=== PATIENT | female | born 1975 | race Caucasian/White ===

== ENCOUNTER → 2017-07-12 15:03 | Outpatient (REF) | payer BC, SELFPAY ==
[2017-07-12 18:56] LABS: Amphetamine/Metha Screen,Urine Negative ng/mL (<1000); Barbiturates Screen,Urine Negative ng/mL (<200); Benzodiazepines Screen,Urine Positive ng/mL (200); Cannabinoid Screen,Urine Negative ng/mL (<50); Cocaine Screen,Urine Negative ng/g (<300); Methadone Screen,Urine Negative ng/mL (<300); Opiate Screen,Urine Negative ng/mL (<300); Phencyclidine Screen,Urine Negative ng/mL (<25)
== END ==
LOC: LAB 15:03
PROVIDERS: Visit Provider Nurse Practitioner Family
DX: Z79.899 Other long term (current) drug therapy (principal)
CPT/HCPCS: 80305

== ENCOUNTER → 2017-10-09 14:27 | Outpatient (REF) | payer BC, SELFPAY ==
[2017-10-09 16:45] LABS: Amphetamine/Metha Screen,Urine Negative ng/mL (<1000); Barbiturates Screen,Urine Negative ng/mL (<200); Benzodiazepines Screen,Urine Negative ng/mL (200); Cannabinoid Screen,Urine Negative ng/mL (<50); Cocaine Screen,Urine Negative ng/g (<300); Methadone Screen,Urine Negative ng/mL (<300); Opiate Screen,Urine Negative ng/mL (<300); Phencyclidine Screen,Urine Negative ng/mL (<25)
== END ==
LOC: LAB 14:27
PROVIDERS: Visit Provider Emergency Medicine
DX: Z79.899 Other long term (current) drug therapy (principal)
CPT/HCPCS: 80305

== ENCOUNTER → 2018-01-08 11:03 | Outpatient (REF) | payer BC, SELFPAY ==
[2018-01-08 14:11] LABS: Amphetamine/Metha Screen,Urine Negative ng/mL (<1000); Barbiturates Screen,Urine Negative ng/mL (<200); Benzodiazepines Screen,Urine Positive ng/mL (<200); Cannabinoid Screen,Urine Positive ng/mL (<50); Cocaine Screen,Urine Negative ng/mL (<300); Methadone Screen,Urine Negative ng/mL (<300); Opiate Screen,Urine Negative ng/mL (<300); Phencyclidine Screen,Urine Negative ng/mL (<25)
== END ==
LOC: LAB 11:03
PROVIDERS: Visit Provider Emergency Medicine
DX: Z79.899 Other long term (current) drug therapy (principal)
CPT/HCPCS: 80305

== ENCOUNTER → 2018-04-11 14:18 | Outpatient (CLI) | payer SELFPAY ==
[2018-04-11 17:12] LABS: Amphetamine/Metha Screen,Urine Negative ng/mL (<1000); Barbiturates Screen,Urine Negative ng/mL (<200); Benzodiazepines Screen,Urine Positive ng/mL (<200); Cannabinoid Screen,Urine Positive ng/mL (<50); Cocaine Screen,Urine Negative ng/mL (<300); Methadone Screen,Urine Negative ng/mL (<300); Opiate Screen,Urine Negative ng/mL (<300); Phencyclidine Screen,Urine Negative ng/mL (<25)
== END ==
PROVIDERS: Visit Provider Emergency Medicine
DX: Z79.899 Other long term (current) drug therapy (principal)
CPT/HCPCS: 80305

== ENCOUNTER → 2018-07-10 13:26 | Outpatient (CLI) | payer SELFPAY ==
[2018-07-10 13:59] LABS: Basophils # 0.1 K/mm3 (0-0.2); Basophils % 1.4 % (0.1-2.0); Eosinophils # 0.1 K/mm3 (0.0-0.4); Eosinophils % 1.2 % (0.1-12.0); Hematocrit 39.8 % (37.0-47.0); Hemoglobin 13.5 g/dL (12.2-16.2); Lymphocytes % 47.1 % (10-50); Mean Corpuscular HGB Conc 33.8 g/dL (31.8-35.4); Mean Corpuscular Hemoglobin 28.4 pg (27.0-31.2); Mean Corpuscular Volume 83.9 fl (81-99); Mean Platelet Volume 8.9 fl (7.4-10.4); Monocytes # 0.2 K/mm3 (0.1-1.0); Monocytes % 5.3 % (1.7-9.3); Neutrophils # 1.9 K/mm3 (1.8-7.8); Platelet Count 245 K/mm3 (142-424); Red Blood Count 4.75 M/mm3 (4.20-5.40); Red Cell Distribution Width 14.6 % (11.5-17.5); White Blood Count 4.2 K/mm3 (4.8-10.8)
[2018-07-10 14:43] LABS: Alanine Aminotransferase 46 U/L (12-78); Albumin Level 4.4 gm/dL (3.4-5.0); Albumin/Globulin Ratio 1.4 (1.1-1.8); Alkaline Phosphatase 156 U/L (46-116); Anion Gap 16.8 mEq/L (5-15); Aspartate Amino Transferase 22 U/L (15-37); Bilirubin,Total 0.3 mg/dL (0.2-1.0); Blood Urea Nitrogen 15 mg/dL (7-18); Calcium 9.2 mg/dL (8.5-10.1); Carbon Dioxide 25 mmol/L (21.0-32.0); Chloride 102 mmol/L (98-107); Cholesterol 171 mg/dL (140-200); Creatinine,Serum 0.67 mg/dL (0.55-1.02); Estimated Glomerular Filt Rate 96 ml/min (>60); Free T4 (Free Thyroxine) 1.21 ng/dl (0.76-1.46); GFR (African American) 116 ML/MIN (>60); Globulin 3.2 gm/dl (1.3-3.2); Glucose 91 mg/dL (74-106); HDL Cholesterol 86 mg/dL (29-89); LDL Cholesterol 79 mg/dL (0-130); Potassium 3.8 mmoL/L (3.5-5.1); Sodium 140 mmol/L (136-145); Thyroid Stimulating Hormone 1.17 uIU/ml (0.358-3.740); Total Protein,Serum 7.6 gm/dL (6.4-8.2); Triglycerides 28 mg/dL (30-200); VLDL Cholesterol 6 mg/dL (0-40)
[2018-07-10 15:54] LABS: Amphetamine/Metha Screen,Urine Negative ng/mL (<1000); Barbiturates Screen,Urine Negative ng/mL (<200); Benzodiazepines Screen,Urine Positive ng/mL (<200); Cannabinoid Screen,Urine Positive ng/mL (<50); Cocaine Screen,Urine Negative ng/mL (<300); Methadone Screen,Urine Negative ng/mL (<300); Opiate Screen,Urine Negative ng/mL (<300); Phencyclidine Screen,Urine Negative ng/mL (<25)
[2018-07-11 09:33] LABS: Vitamin D 25 Hydroxy 12.1 ng/mL (30.0-100.0)
== END ==
PROVIDERS: Visit Provider Emergency Medicine
DX: R53.83 Other fatigue (principal); Z79.899 Other long term (current) drug therapy
CPT/HCPCS: 80053; 80061; 80305; 82652; 84439; 84443; 85025

== ENCOUNTER → 2018-10-04 13:58 | Outpatient (CLI) | payer SELFPAY ==
[2018-10-04 15:03] LABS: Amphetamine/Metha Screen,Urine Negative ng/mL (<1000); Barbiturates Screen,Urine Negative ng/mL (<200); Benzodiazepines Screen,Urine Positive ng/mL (<200); Cannabinoid Screen,Urine Positive ng/mL (<50); Cocaine Screen,Urine Negative ng/mL (<300); Methadone Screen,Urine Negative ng/mL (<300); Opiate Screen,Urine Negative ng/mL (<300); Phencyclidine Screen,Urine Negative ng/mL (<25)
== END ==
PROVIDERS: Visit Provider Emergency Medicine
DX: F41.9 Anxiety disorder, unspecified (principal)
CPT/HCPCS: 80305

== ENCOUNTER → 2019-01-03 13:56 | Outpatient (CLI) | payer SELFPAY ==
[2019-01-03 16:37] LABS: Amphetamine/Metha Screen,Urine Negative ng/mL (<1000); Barbiturates Screen,Urine Negative ng/mL (<200); Benzodiazepines Screen,Urine Positive ng/mL (<200); Cannabinoid Screen,Urine Positive ng/mL (<50); Cocaine Screen,Urine Negative ng/mL (<300); Methadone Screen,Urine Negative ng/mL (<300); Opiate Screen,Urine Negative ng/mL (<300); Phencyclidine Screen,Urine Negative ng/mL (<25)
== END ==
PROVIDERS: Visit Provider Emergency Medicine
DX: Z79.899 Other long term (current) drug therapy (principal)
CPT/HCPCS: 80305

== ENCOUNTER → 2019-04-04 13:29 | Outpatient (CLI) | payer SELFPAY ==
[2019-04-04 15:23] LABS: Amphetamine/Metha Screen,Urine Negative ng/mL (<1000); Barbiturates Screen,Urine Negative ng/mL (<200); Benzodiazepines Screen,Urine Positive ng/mL (<200); Cannabinoid Screen,Urine Positive ng/mL (<50); Cocaine Screen,Urine Negative ng/mL (<300); Methadone Screen,Urine Negative ng/mL (<300); Opiate Screen,Urine Negative ng/mL (<300); Phencyclidine Screen,Urine Negative ng/mL (<25)
== END ==
PROVIDERS: Visit Provider Emergency Medicine
DX: F41.9 Anxiety disorder, unspecified (principal)
CPT/HCPCS: 80305

== ENCOUNTER → 2019-07-04 14:07 | Outpatient (CLI) | payer SELFPAY ==
[2019-07-04 16:48] LABS: Amphetamine/Metha Screen,Urine Negative ng/mL (<1000); Barbiturates Screen,Urine Negative ng/mL (<200); Benzodiazepines Screen,Urine Positive ng/mL (<200); Cannabinoid Screen,Urine Positive ng/mL (<50); Cocaine Screen,Urine Negative ng/mL (<300); Methadone Screen,Urine Negative ng/mL (<300); Opiate Screen,Urine Negative ng/mL (<300); Phencyclidine Screen,Urine Negative ng/mL (<25)
== END ==
PROVIDERS: Visit Provider Emergency Medicine
DX: Z79.899 Other long term (current) drug therapy (principal)
CPT/HCPCS: 80305

== ENCOUNTER 2020-01-05 14:13 | Emergency (ER) | payer MEDICAID, SELFPAY ==
[2020-01-05 15:07] VITALS: BMI 20.9
--- NOTE | 2020-01-05 15:09 | XR_ITS ---
PROCEDURE: XR KUB CLINICAL INDICATION: stomach cramps COMPARISON: No exams were available for comparison FINDINGS: Moderate amount of retained colonic feces. Pelvic calcifications are present and may be due to phleboliths. Prior cholecystectomy. IMPRESSION: Constipation Dictated by: Nikhil Enrique MD 01/05/2020 16:30 Electronically signed by Nikhil Enrique MD in [place] 01/05/2020 16:30
[2020-01-05 15:19] VITALS: BP 108/68; PULSE 70; RESP 20; TEMP 36.6; O2SAT 99; BMI 20.9
--- NOTE | 2020-01-05 15:51 | HMH.EDUTC ---
[facility] [place] Disposition Clinical Impression: Abdominal pain Qualifiers: Abdominal location: generalized Qualified Code(s): R10.84 - Generalized abdominal pain Constipation Qualifiers: Constipation type: unspecified constipation type Qualified Code(s): K59.00 - Constipation, unspecified Disposition: Home, Self-Care Condition on Discharge: Good Instructions: Constipation, DI for Constipation Additional Instructions: Drink plenty of fluids. Take tylenol or ibuprofen for pain or fever. Take the medications as directed. Follow up with your regular doctor. GO TO THE ER FOR ANY WORSENING SYMPTOMS Eat a diet high in fiber. Prescriptions: polyethylene glycoL 3350 [Miralax Powder] 17 gm PO DAILYP PRN #1 jar PRN Reason: Constipation Transmission Status: Received by [facility] Referrals: Osmin Mathur MD [Primary Care Provider] - Forms: Work/School Release Time of Disposition: 16:13 Medical Decision Making - Medical Records Medical records reviewed: No: I reviewed the patient's medical records. - Zen Inquiry Pt receiving controlled substance: No Vital Signs: 01/05/20 15:19 01/05/20 16:19 Temperature 97.9 F 97.9 F Temperature Source Oral Pulse Rate 70 Pulse Rate [Right Brachial] 70 Respiratory Rate 20 20 Blood Pressure 108/68 L Blood Pressure [Right Arm] 108/68 L Blood Pressure Mean [Right Arm] 81 Blood Pressure Source [Right Arm] Automatic Cuff Blood Pressure Position [Right Arm] Sitting 02 Sat by Pulse Oximetry 99 Oxygen Delivery Method Room Air - Radiology Data #1 Image(s): Abdomen Image Reviewed: Yes I reviewed the patient's radiology image, Yes I have reviewed radiologist's interpretation PROCEDURE: XR KUB CLINICAL INDICATION: stomach cramps COMPARISON: No exams were available for comparison FINDINGS: Moderate amount of retained colonic feces. Pelvic calcifications are present and may be due to phleboliths. Prior cholecystectomy. IMPRESSION: Constipation Dictated by: Nikhil Enrique MD 01/05/2020 16:30 Electronically signed by Nikhil Enrique MD in [place] 01/05/2020 16:30 [facility] [place] HPI - General Stated complaint: CONSPATED Time Seen by Provider: 01/05/20 15:51 Mode of Arrival: Ambulatory Source of Information: Patient Limitations: No Limitations Description of Symptoms (Recalled from Triage Doc. by RN): PATIENT C/O STOMACH CRAMPS, WEIGHT LOSS, BLOATING, FATIGUE, HEADACHE, AND NO BOWEL MOVEMENT X 3 DAYS HEENT Symptoms (Recalled from RN notes): No Resp Symptoms (Recalled from RN notes): No Skin Symptoms (Recalled from RN notes): No MS Symptoms (Recalled from RN notes): No Functional Status (Recalled from RN notes): WNL - History of Present Illness Provider Complaint: She c/o 3 days of consitpation. She has also been having fatigue and weight loss, but she has an appointment with her pcp (Dr. Mathur) to further evaluate this. - Related Data Previous Rx's Medication Instructions Recorded Albuterol Sulfate [Albuterol HFA 1 - 2 puffs IH Q4-6H PRN #1 inh 04/17/18 Inhaler] cholecalciferol (vitamin D3) 25 1,000 unit PO DAILY 90 Days #90 cap 07/12/18 mcg (1,000 unit) capsule alprazolam 1 mg tablet 1 mg PO QID #120 tab 07/04/19 trazodone 50 mg tablet 25 mg PO QHS #45 tab 07/04/19 alprazolam 1 mg tablet 1 mg PO TID #90 tab 12/12/19 polyethylene glycoL 3350 [Miralax 17 gm PO DAILYP PRN #1 jar 01/05/20 Powder] Allergies Allergy/AdvReac Type Severity Reaction Status Date / Time No Known Allergies Allergy Verified 07/04/19 09:41 - Worker's Comp Is this a Worker's Comp case?: No [facility] History - Hepatitis A Screen Drug use history?: No High risk sexual behaviors?: No History of sexually transmitted infection?: No Currently employed?: No Childcare worker?: No Do you have indoor plumbing?: Yes Do you have electricity?: Yes Attestation statement:: This patient has been screened for Hepatitis A risk factors.
[2020-01-05 16:19] VITALS: BP 108/68; PULSE 70; RESP 20; TEMP 36.6; O2SAT 99
== END 2020-01-05 16:26 | disposition home or self-care (01) ==
PROVIDERS: Emergency Provider Nurse Practitioner Family; PCP Emergency Medicine
DX: R10.84 Generalized abdominal pain (principal); K59.00 Constipation, unspecified; F41.8 Other specified anxiety disorders; F17.210 Nicotine dependence, cigarettes, uncomplicated
CPT/HCPCS: 74018; 99201

== ENCOUNTER → 2020-06-22 11:27 | Outpatient (CLI) | payer OTHER, SELFPAY ==
[2020-06-23 08:33] LABS: Covid-19 Nasal PCR Sendout P&C NEGATIVE
== END ==
PROVIDERS: PCP Emergency Medicine; Visit Provider Emergency Medicine
DX: Z20.822 Contact with and (suspected) exposure to COVID-19 (principal)
CPT/HCPCS: U0004

== ENCOUNTER → 2020-06-23 13:43 | Outpatient (CLI) | payer OTHER, SELFPAY ==
[2020-06-23 13:56] LABS: Alanine Aminotransferase 78 U/L (12-78); Albumin/Globulin Ratio 1.6 (1.1-1.8); Alkaline Phosphatase 190 U/L (38-126); Anion Gap 12.9 mEq/L (5-15); Aspartate Amino Transferase 77 U/L (14-36); Bilirubin,Total 0.6 mg/dl (0.2-1.3); Blood Urea Nitrogen 8 mg/dl (7-17); Calcium 9.7 mg/dl (8.4-10.2); Carbon Dioxide 28 mmol/L (22.0-30.0); Chloride 103 mmol/L (98-107); Chol/HDL Ratio 2.3 (1-3.5); Cholesterol 219 mg/dl (140-200); Estimated Glomerular Filt Rate 108 ml/min (>60); GFR (African American) 131 ML/MIN (>60); Globulin 3.2 g/dL (1.3-3.2); Glucose 115 mg/dl (74-100); HDL Cholesterol 97 mg/dl (40-60); Potassium 3.9 mmoL/L (3.5-5.1); Sodium 140 mmol/L (136-145); Total Protein,Serum 8.2 g/dl (6.3-8.2); Triglycerides 68 mg/dl (30-150); VLDL Cholesterol 14 mg/dL (0-40)
[2020-06-23 14:06] LABS: Direct LDL Cholesterol 75.66 mg/dL (100-129)
[2020-06-23 14:12] LABS: Free T4 (Free Thyroxine) 1.34 ng/dl (0.78-2.19)
[2020-06-23 14:16] LABS: 25-OH Vitamin D, Total < 12.8 ng/mL (30-100)
[2020-06-23 14:23] LABS: Basophils # 0.1 K/mm3 (0-0.2); Basophils % 1.4 % (0.1-2.0); Eosinophils # 0.1 K/mm3 (0.0-0.4); Eosinophils % 2.7 % (0.1-12.0); Hematocrit 41.1 % (37.0-47.0); Hemoglobin 14.3 g/dL (12.2-16.2); Lymphocytes # 2.3 K/mm3 (0.7-4.5); Lymphocytes % 45.2 % (10-50); Mean Corpuscular HGB Conc 34.8 g/dL (31.8-35.4); Mean Corpuscular Volume 86.2 fl (81-99); Mean Platelet Volume 10.3 fl (7.4-10.4); Monocytes # 0.3 K/mm3 (0.1-1.0); Neutrophils # 2.3 K/mm3 (1.8-7.8); Neutrophils % 45.7 % (37.0-80.0); Platelet Count 204 K/mm3 (142-424); Red Blood Count 4.77 M/mm3 (4.20-5.40); Red Cell Distribution Width 15.1 % (11.5-17.5); White Blood Count 5.1 K/mm3 (4.8-10.8)
[2020-06-23 14:27] LABS: Thyroid Stimulating Hormone 0.82 uIU/mL (0.465-4.68)
== END ==
PROVIDERS: Visit Provider Emergency Medicine
DX: R10.9 Unspecified abdominal pain (principal); E55.9 Vitamin D deficiency, unspecified; Z79.899 Other long term (current) drug therapy
CPT/HCPCS: 80053; 80061; 82306; 84439; 84443; 85025

== ENCOUNTER 2020-08-04 09:51 | Emergency (ER) | payer OTHER, SELFPAY ==
[2020-08-04 09:52] VITALS: BP 138/73; BP 95/61; PULSE 69; PULSE 77; RESP 18; TEMP 36.9; O2SAT 100; O2SAT 97; BMI 21.1
--- NOTE | 2020-08-04 09:59 | HMH.EDGENADL ---
ED Disposition Clinical Impression: Abdominal pain Qualifiers: Abdominal location: right lower quadrant Qualified Code(s): R10.31 - Right lower quadrant pain Ovarian cyst Qualifiers: Laterality: unspecified laterality Qualified Code(s): N83.209 - Unspecified ovarian cyst, unspecified side Disposition: Home, Self-Care Condition on Discharge: Good Additional Instructions: Please take NSAIDs for any mild pain at home. You can take 600 mg up to 4 times a day always with food. Do not follow this regimen for greater than 2 to 3 days at a time. Please return immediately to our emergency department if any nausea/vomiting, recurrent/worsening right lower quadrant abdominal pain, fever/chills, or other new concerning symptoms. Otherwise please follow-up with your [facility] [employer] [facility] for further management. Referrals: Osmin Mathur MD [Primary Care Provider] - - Critical Care Critical Care Time: No Attestation: On 08/04/20, the high probability of a clinically significant, sudden or life threatening deterioration of the following system(s) required my full and direct attention, intervention and personal management. The time I documented below is in addition to time spent performing reported procedures but includes the following listed in this critical care notation. Medical Decision Making - Medical Records Medical records reviewed: Yes: I reviewed the patient's medical records. - Zen Inquiry Pt receiving controlled substance: No Vital Signs: 08/04/20 09:52 Temperature 98.4 F Temperature Source Oral Pulse Rate [Right] 77 Respiratory Rate 18 Blood Pressure [Right Arm] 95/61 L Blood Pressure Mean [Right Arm] 72 Blood Pressure Source [Right Arm] Automatic Cuff Blood Pressure Position [Right Arm] Sitting 02 Sat by Pulse Oximetry 97 Oxygen Delivery Method Room Air - Lab Data Lab Results 08/04/20 10:00: Urine Color Yellow, Urine Appearance Clear, Urine pH 7.0, Ur Specific [place] 1.015, Urine Protein Negative, Urine Glucose (UA) Negative, Urine Ketones Negative, Urine Blood Trace-l, Urine Nitrate Negative, Urine Bilirubin Negative, Urine Urobilinogen 0.2, Ur Leukocyte Esterase Negative, Urine RBC Occasional, Urine WBC 3-5, Ur Squamous Epith Cells 5-10 08/04/20 10:00: WBC 4.6 L, RBC 4.71, Hgb 13.2, Hct 40.9, MCV 86.9, MCH 28.0, MCHC 32.2, RDW 15.1, Plt Count 190, MPV 9.0, Neut % (Auto) 52.5, Lymph % (Auto) 38.8, [place] % (Auto) 5.6, Eos % (Auto) 2.0, Baso % (Auto) 1.1, Neut # (Auto) 2.4, Lymph # (Auto) 1.8, [place] # (Auto) 0.3, Eos # (Auto) 0.1, Baso # (Auto) 0.1 08/04/20 10:00: Urine HCG, Qual Negative 08/04/20 10:00: Sodium 139, Potassium 3.4 L, Chloride 106, Carbon Dioxide 25, Anion Gap 11.4, BUN 10, Creatinine 0.60, Estimated Creat Clear 113, Estimated GFR 108, Est GFR ( Amer) 130, Glucose 87, Calcium 9.7, Total Bilirubin 0.5, AST 105 H, ALT 71, Alkaline Phosphatase 159 H, C-Reactive Protein 0.3, Total Protein 8.2, Albumin 4.9, Globulin 3.3 H, Albumin/Globulin Ratio 1.5, Lipase 56 Result diagrams: 08/04/20 10:00 08/04/20 10:00 Orders (Tests/Meds): ED MEDICATIONS Discontinued Medications Generic Name Dose Route Start Last Admin Trade Name Freq PRN Reason Stop Dose Admin Ketorolac Tromethamine 15 mg 08/04/20 10:41 08/04/20 10:43 Ketorolac 30mg/Ml Vial IV 08/04/20 10:42 15 mg ONCE ONE Administration Medical Decision Narrative: Patient is a 45-year-old female present with right lower quadrant pain. On exam, I am not able to elicit tenderness on palpation of right lower quadrant. No rebound, guarding, any signs of peritonitis. Patient is overall well-appearing, nontoxic with normal vital signs. Differential diagnosis does include cystitis versus pyelonephritis versus urolithiasis versus pathology versus . At this time, based on patient's benign exam do not believe imaging is indicated prior to lab work being obtained. Lab work will be obtained to ensure no elevated inflammatory mar
[2020-08-04 10:22] VITALS: BP 103/71; PULSE 77; RESP 18; O2SAT 98
[2020-08-04 10:23] LABS: Microscopic, Urine URINE MICROSCOPIC (MICROSCOPIC)
[2020-08-04 10:30] VITALS: BP 99/55; PULSE 72; RESP 18; O2SAT 98
[2020-08-04 10:30] LABS: Chloride 106 mmol/L (98-107)
[2020-08-04 10:31] LABS: Potassium 3.4 mmoL/L (3.5-5.1); Sodium 139 mmol/L (136-145)
[2020-08-04 10:32] LABS: Basophils # 0.1 K/mm3 (0-0.2); Basophils % 1.1 % (0.1-2.0); Eosinophils # 0.1 K/mm3 (0.0-0.4); Hematocrit 40.9 % (37.0-47.0); Hemoglobin 13.2 g/dL (12.2-16.2); Lymphocytes # 1.8 K/mm3 (0.7-4.5); Lymphocytes % 38.8 % (10-50); Mean Corpuscular HGB Conc 32.2 g/dL (31.8-35.4); Mean Corpuscular Volume 86.9 fl (81-99); Monocytes # 0.3 K/mm3 (0.1-1.0); Monocytes % 5.6 % (1.7-9.3); Neutrophils # 2.4 K/mm3 (1.8-7.8); Neutrophils % 52.5 % (37.0-80.0); Platelet Count 190 K/mm3 (142-424); Red Blood Count 4.71 M/mm3 (4.20-5.40); Red Cell Distribution Width 15.1 % (11.5-17.5); White Blood Count 4.6 K/mm3 (4.8-10.8)
[2020-08-04 10:33] LABS: Alanine Aminotransferase 71 U/L (12-78); Alkaline Phosphatase 159 U/L (38-126); Anion Gap 11.4 mEq/L (5-15); Aspartate Amino Transferase 105 U/L (14-36); Bilirubin,Total 0.5 mg/dl (0.2-1.3); Blood Urea Nitrogen 10 mg/dl (7-17); Calcium 9.7 mg/dl (8.4-10.2); Carbon Dioxide 25 mmol/L (22.0-30.0); Creatinine Clearance Estimated 113 mL/min (50-200); Estimated Glomerular Filt Rate 108 ml/min (>60); GFR (African American) 130 ML/MIN (>60); Glucose 87 mg/dl (74-100); Lipase 56 U/L (23-300)
[2020-08-04 10:34] LABS: Albumin Level 4.9 g/dl (3.5-5.0); Albumin/Globulin Ratio 1.5 (1.1-1.8); Globulin 3.3 g/dL (1.3-3.2); Total Protein,Serum 8.2 g/dl (6.3-8.2)
[2020-08-04 10:37] LABS: Appearance,Urine CLEAR (Clear); Bilirubin,Urine Negative (Negative); Blood, Urine TRACE-L (Negative); Color,Urine YELLOW (Yellow); Glucose,Urine (UA) Negative (Negative); Ketones,Urine Negative (Negative); Leukocyte Esterase,Urine Negative (Negative); Nitrate,Urine Negative (Negative); Protein,Urine Negative (Negative); Specific Gravity, Urine 1.015 (1.005-1.030); Urobilinogen,Urine 0.2 EU/dl (0.2)
[2020-08-04 10:38] LABS: Urine Pregnancy, HCG Qual. Negative (Negative)
[2020-08-04 10:39] LABS: C-Reactive Protein 0.3 mg/L (0-4)
[2020-08-04 10:46] LABS: RBC,Urine Occasional #/hpf (0-3)
[2020-08-04 11:00] VITALS: BP 103/71; PULSE 77; RESP 18; O2SAT 98
[2020-08-04 11:30] VITALS: BP 132/67; PULSE 66; RESP 18; TEMP 36.7; O2SAT 100
== END 2020-08-04 11:25 | disposition home or self-care (01) ==
PROVIDERS: Emergency Provider Emergency Medicine; PCP Emergency Medicine
DX: N83.201 Unspecified ovarian cyst, right side (principal); F41.8 Other specified anxiety disorders; F17.210 Nicotine dependence, cigarettes, uncomplicated
CPT/HCPCS: 80053; 81001; 81025; 83690; 85025; 86140; 96374; 99283

== ENCOUNTER → 2020-08-06 12:09 | Outpatient (CLI) | payer OTHER, SELFPAY ==
--- NOTE | 2020-08-06 12:12 | US_ITS ---
PROCEDURE: US TRANSVAGINAL CLINICAL INDICATION: r/o ovarian torsion COMPARISON: US PTV US PELVIS-TRANSVAGINAL ONLY from 01/07/2015 FINDINGS: UTERUS: 9cm x 6cmx 4cm with a combined endometrial thickness of 13 mm LEFT OVARY: [id number] with a volume of 5.4ml. RIGHT OVARY: [id number] with a volume of 6.4ml. The endometrium is mildly thickened at 13 mm. There is a small focal area of increased echogenicity within the central aspect of the endometrium at the fundal area. This area measures approximately 5 mm and may represent a small endometrial polyp. There is a fibroid present along the posterior aspect of the fundus of the uterus at 2 cm. A follicular cyst is present on the right ovary at 1.6 cm. No cul-de-sac fluid. IMPRESSION: 1. Thickened endometrium with suspected small endometrial polyp. 2. Uterine fibroid. Dictated by: Nikhil Enrique MD 08/06/2020 13:06 Nikhil Enrique MD in [place] 08/06/2020 13:06
== END ==
PROVIDERS: PCP Emergency Medicine; Visit Provider Emergency Medicine
DX: R10.2 Pelvic and perineal pain (principal)
CPT/HCPCS: 76830

== ENCOUNTER → 2020-08-30 15:16 | Outpatient (CLI) | payer OTHER, SELFPAY | PROVIDERS: Visit Provider Emergency Medicine | DX: R82.90 Unspecified abnormal findings in urine (principal) | CPT/HCPCS: 87086; 87088; 87186 ==

== ENCOUNTER → 2020-09-20 14:33 | Outpatient (CLI) | payer OTHER, SELFPAY ==
[2020-09-20 15:04] LABS: Phencyclidine Screen,Urine Negative ng/ml (<25)
[2020-09-20 15:09] LABS: Amphetamine/Metha Screen,Urine Negative ng/ml (<1000)
[2020-09-20 15:11] LABS: Barbiturates Screen,Urine Negative ng/ml (<200)
[2020-09-20 15:12] LABS: Benzodiazepines Screen,Urine Positive ng/ml (<200)
[2020-09-20 15:13] LABS: Cannabinoid Screen,Urine Positive ng/ml (<50)
[2020-09-20 15:15] LABS: Cocaine Screen,Urine Negative ng/ml (<300)
[2020-09-20 15:16] LABS: Methadone Screen,Urine Negative ng/ml (<300); Opiate Screen,Urine Negative ng/ml (<300)
== END ==
PROVIDERS: Visit Provider Emergency Medicine
DX: Z79.899 Other long term (current) drug therapy (principal)
CPT/HCPCS: 80305

== ENCOUNTER → 2020-10-13 17:52 | Outpatient (CLI) | payer OTHER, SELFPAY | PROVIDERS: Visit Provider Emergency Medicine | DX: J02.9 Acute pharyngitis, unspecified (principal) ==

== ENCOUNTER 2020-11-16 18:08 | Emergency (ER) | payer BC, SELFPAY ==
[2020-11-16 18:09] VITALS: BP 126/49; PULSE 71; RESP 16; TEMP 36.6; O2SAT 98; BMI 21.9
--- NOTE | 2020-11-16 18:20 | HMH.EDGENADL ---
ED Disposition Condition on Discharge: Good - Critical Care Critical Care Time: No <Giuliana Dickens - Last Filed: 11/16/20 19:58> <Osmin Mathur - Last Filed: 11/16/20 21:35> Clinical Impression: Abdominal pain Qualifiers: Abdominal location: right lower quadrant Qualified Code(s): R10.31 - Right lower quadrant pain Disposition: Home, Self-Care Instructions: DI for Acute Pain -- Adult Additional Instructions: call pcp in am Referrals: Osmin Mathur MD [Primary Care Provider] - Attestation: On 11/16/20, the high probability of a clinically significant, sudden or life threatening deterioration of the following system(s) required my full and direct attention, intervention and personal management. The time I documented below is in addition to time spent performing reported procedures but includes the following listed in this critical care notation. Medical Decision Making - Medical Records Medical records reviewed: Yes: I reviewed the patient's medical records. - Zen Inquiry Pt receiving controlled substance: No - Lab Data Lab results reviewed: Yes: I reviewed the patient's lab results. Result diagrams: 11/16/20 19:00 11/16/20 19:00 <Giuliana Dickens - Last Filed: 11/16/20 19:58> - Lab Data Result diagrams: 11/16/20 19:00 11/16/20 19:00 - CT Data CT Scan: Abdomen, Pelvis Time Received: 21:[address] Reviewed: Yes: I have viewed the radiologist's interpretation Preliminary Findings: Abnormal (see report ) <Osmin Mathur - Last Filed: 11/16/20 21:35> Vital Signs: 11/16/20 18:09 11/16/20 19:30 11/16/20 20:00 Temperature 98 F Temperature Source Oral Pulse Rate 64 70 Pulse Rate [Radial] 71 Respiratory Rate 16 Blood Pressure 130/79 111/68 Blood Pressure [Right Arm] 126/49 L Blood Pressure Mean 96 82 Blood Pressure Mean [Right Arm] 74 Blood Pressure Position [Right Arm] Sitting 02 Sat by Pulse Oximetry 98 99 100 Oxygen Delivery Method Room Air Room Air 11/16/20 20:30 11/16/20 21:00 Temperature Temperature Source Pulse Rate 77 64 Pulse Rate [Radial] Respiratory Rate Blood Pressure 125/54 L 109/58 L Blood Pressure [Right Arm] Blood Pressure Mean 87 75 Blood Pressure Mean [Right Arm] Blood Pressure Position [Right Arm] 02 Sat by Pulse Oximetry 100 99 Oxygen Delivery Method Room Air - Lab Data Lab Results 11/16/20 18:15: Urine Color Yellow, Urine Appearance Clear, Urine pH 7.5, Ur Specific [place] 1.020, Urine Protein Negative, Urine Glucose (UA) Negative, Urine Ketones Negative, Urine Blood Negative, Urine Nitrate Negative, Urine Bilirubin Negative, Urine Urobilinogen 0.2, Ur Leukocyte Esterase Negative, Urine RBC None, Urine WBC None, Ur Squamous Epith Cells 3-5, Urine Bacteria None 11/16/20 19:00: WBC 6.6, RBC 4.24, Hgb 11.9 L, Hct 36.1 L, MCV 85.1, MCH 28.1, MCHC 33.0, RDW 14.7, Plt Count 233, MPV 8.6, Neut % (Auto) 52.1, Lymph % (Auto) 37.1, [place] % (Auto) 7.1, Eos % (Auto) 2.1, Baso % (Auto) 1.5, Neut # (Auto) 3.5, Lymph # (Auto) 2.5, [place] # (Auto) 0.5, Eos # (Auto) 0.1, Baso # (Auto) 0.1 11/16/20 19:00: Sodium 139, Potassium 3.8, Chloride 103, Carbon Dioxide 28, Anion Gap 11.8, BUN 10, Creatinine 0.70, Estimated Creat Clear 101, Estimated GFR 90, Est GFR ( Amer) 109, Glucose 92, Calcium 8.9, Total Bilirubin 0.2, AST 30, ALT 23, Alkaline Phosphatase 99, Total Protein 7.7, Albumin 4.9, Globulin 2.8, Albumin/Globulin Ratio 1.8, Lipase 109 11/16/20 19:00: ESR 15 Orders (Tests/Meds): ED MEDICATIONS Generic Name Dose Route Start Last Admin Trade Name Freq PRN Reason Stop Dose Admin Sodium Chloride 1,000 mls @ 999 mls/hr 11/16/20 19:00 11/16/20 19:04 Sod Chlor 0.9% 1000ml Bag IV 11/16/20 20:00 999 mls/hr .Q1H1M ANNCY Administration Sodium Chloride 8 ml 11/16/20 20:06 Sodium Chloride 0.9% 10ml Vial IV 12/16/20 20:05 NEEDED PRN dilute pepcid Discontinued Medications Generic Name Dose R
[2020-11-16 18:31] LABS: Microscopic, Urine URINE MICROSCOPIC (MICROSCOPIC)
[2020-11-16 18:35] LABS: Appearance,Urine CLEAR (Clear); Bilirubin,Urine Negative (Negative); Blood, Urine Negative (Negative); Color,Urine YELLOW (Yellow); Glucose,Urine (UA) Negative (Negative); Ketones,Urine Negative (Negative); Leukocyte Esterase,Urine Negative (Negative); Nitrate,Urine Negative (Negative); PH,Urine 7.5 (5.0-8.5); Protein,Urine Negative (Negative); Urobilinogen,Urine 0.2 EU/dl (0.2)
--- NOTE | 2020-11-16 18:54 | CT_ITS ---
PROCEDURE INFORMATION: Exam: CT Abdomen And Pelvis With Contrast Exam date and time: 11/16/2020 6:54 PM Age: 45 years old Clinical indication: Localized; Patient HX: Right sided abdominal pain; Additional info: Rlq abd pain TECHNIQUE: Imaging protocol: Computed tomography of the abdomen and pelvis with contrast. Total images: 303 Radiation optimization: All CT scans at this facility use at least one of these dose optimization techniques: automated exposure control; mA and/or kV adjustment per patient size (includes targeted exams where dose is matched to clinical indication); or iterative reconstruction. Contrast material: ISOVUE; Contrast volume: 75 ml; Contrast route: IV; COMPARISON: No relevant prior studies available. FINDINGS: Heart: Heart size normal. Mediastinal space: The visualized distal esophagus is normal. Liver: Normal contour. No mass lesions. Mild-moderate intrahepatic biliary ductal dilatation. Gallbladder and bile ducts: Prior cholecystectomy. Moderate dilatation of the common bile duct measuring 15 mm diameter. This may relate to chronic postoperative dilatation. No calcified duct stones or obstructive mass lesions are identified. Clinical/laboratory correlation recommended to exclude evidence of biliary obstruction. Consider sonographic assessment as clinically indicated. Pancreas: Slight dilatation of the pancreatic duct measuring up to 3.5 mm diameter at the pancreatic body. This could also relate to chronic postoperative dilatation. No signs of pancreatitis or mass lesion. Spleen: Granulomatous calcifications in the spleen without acute splenic abnormality. Adrenal glands: Normal. No adrenal mass. Kidneys and ureters: No acute abnormalities. No hydronephrosis or hydroureter. No urinary tract stones are identified. There is a low-density circumscribed left renal cortical lesion suggesting renal cyst. No further imaging evaluation is required. Stomach and bowel: The stomach is unremarkable. The small bowel is nondilated with no gross abnormality. Large amount of stool throughout the colon suggesting constipation. Appendix: The appendix is normal in caliber and demonstrates no evidence of appendicitis. Intraperitoneal space: No free fluid or air. Vasculature: No acute process. No abdominal aortic aneurysm. Lymph nodes: Calcified granulomas in the posteromedial right lower lobe and right perihilar region. Lung bases are otherwise clear. Urinary bladder: Unremarkable as visualized. Reproductive: The cervix seems somewhat prominent measuring up to 4 cm AP x 5.5 cm transverse, with no definite focal mass lesion appreciated. Gynecologic follow-up and direct visualization/evaluation recommended. The remainder of the uterus is unremarkable. The right ovary is unremarkable. Fluid-filled left fallopian tube measuring up to 13 mm diameter without adjacent inflammatory stranding, wall thickening, or enhancement, favoring hydrosalpinx, with no features to favor pyosalpinx/TOA. This could be characterized further with pelvic ultrasound. Bones/joints: No acute osseous abnormalities. Transitional lumbosacral segment designated a partially lumbarized S1 segment for purposes of this exam. Chronic severe disc degenerative changes at what is designated the L5-S1 level with vacuum disc formation and marginal spurring producing moderate bilateral foraminal stenosis. Soft tissues: Unremarkable. IMPRESSION: 1. Normal appendix. No urolithiasis or hydronephrosis. 2. Large amount of stool throughout the colon suggesting constipation. 3. Moderate dilatation of the common bile duct and mild-moderate intrahepatic biliary ductal dilatat
[2020-11-16 19:10] LABS: Basophils # 0.1 K/mm3 (0-0.2); Basophils % 1.5 % (0.1-2.0); Eosinophils # 0.1 K/mm3 (0.0-0.4); Eosinophils % 2.1 % (0.1-12.0); Hematocrit 36.1 % (37.0-47.0); Hemoglobin 11.9 g/dL (12.2-16.2); Lymphocytes # 2.5 K/mm3 (0.7-4.5); Lymphocytes % 37.1 % (10-50); Mean Corpuscular Hemoglobin 28.1 pg (27.0-31.2); Mean Corpuscular Volume 85.1 fl (81-99); Mean Platelet Volume 8.6 fl (7.4-10.4); Monocytes # 0.5 K/mm3 (0.1-1.0); Monocytes % 7.1 % (1.7-9.3); Neutrophils # 3.5 K/mm3 (1.8-7.8); Neutrophils % 52.1 % (37.0-80.0); Platelet Count 233 K/mm3 (142-424); Red Blood Count 4.24 M/mm3 (4.20-5.40); Red Cell Distribution Width 14.7 % (11.5-17.5); White Blood Count 6.6 K/mm3 (4.8-10.8)
[2020-11-16 19:30] VITALS: BP 130/79; PULSE 64; O2SAT 99
[2020-11-16 19:33] LABS: Chloride 103 mmol/L (98-107); Sodium 139 mmol/L (136-145)
[2020-11-16 19:34] LABS: Potassium 3.8 mmoL/L (3.5-5.1)
[2020-11-16 19:36] LABS: Alanine Aminotransferase 23 U/L (12-78); Albumin Level 4.9 g/dl (3.5-5.0); Albumin/Globulin Ratio 1.8 (1.1-1.8); Alkaline Phosphatase 99 U/L (38-126); Anion Gap 11.8 mEq/L (5-15); Aspartate Amino Transferase 30 U/L (14-36); Bilirubin,Total 0.2 mg/dl (0.2-1.3); Blood Urea Nitrogen 10 mg/dl (7-17); Calcium 8.9 mg/dl (8.4-10.2); Carbon Dioxide 28 mmol/L (22.0-30.0); Creatinine Clearance Estimated 101 mL/min (50-200); Estimated Glomerular Filt Rate 90 ml/min (>60); GFR (African American) 109 ML/MIN (>60); Globulin 2.8 g/dL (1.3-3.2); Glucose 92 mg/dl (74-100); Lipase 109 U/L (23-300); Total Protein,Serum 7.7 g/dl (6.3-8.2)
[2020-11-16 20:00] VITALS: BP 111/68; PULSE 70; O2SAT 100
--- NOTE | 2020-11-16 20:26 | PC.NURSE ---
patient in ct
[2020-11-16 20:30] VITALS: BP 125/54; PULSE 77; O2SAT 100
--- NOTE | 2020-11-16 20:45 | PC.NURSE ---
patient back in room
[2020-11-16 21:00] VITALS: BP 109/58; PULSE 64; O2SAT 99
[2020-11-16 21:08] LABS: Erythrocyte Sedimentation Rate 15 mm/hr (0-20)
[2020-11-16 21:36] VITALS: BP 107/58; PULSE 68; RESP 16; TEMP 36.7; O2SAT 100
[2020-11-16 21:39] LABS: Amylase 90 U/L (30-110)
[2020-11-16 21:58] LABS: C-Reactive Protein < 0.3 mg/L (0-4)
[2020-11-16 21:59] LABS: Procalcitonin < 0.030 ng/mL (0.0-2.0)
== END 2020-11-16 21:48 | disposition home or self-care (01) ==
PROVIDERS: Emergency Provider Emergency Medicine; PCP Emergency Medicine
DX: R10.31 Right lower quadrant pain (principal); M54.5 Low back pain; F41.8 Other specified anxiety disorders; F17.210 Nicotine dependence, cigarettes, uncomplicated
CPT/HCPCS: 74177; 80053; 81001; 82150; 83690; 84145; 85025; 85651; 86140; 96365; 96375; 99283; Q9967

== ENCOUNTER → 2020-12-14 08:25 | Outpatient (CLI) | payer BC, SELFPAY ==
--- NOTE | 2020-12-14 08:30 | US_ITS ---
PROCEDURE: US TRANSVAGINAL CLINICAL INDICATION: COMPARISON: US US TRANSVAGINAL from 08/06/[address] ABDOMEN PELVIS W CON from 11/16/2020 FINDINGS: UTERUS: 8cm x 5cmx 4cm with a combined endometrial thickness of 3.2mm. An oval area of slight increased echogenicity is present in the endometrium at the fundal area at 9 x 3 mm and may represent a uterine polyp similar to the previous exam.. There is a minimal amount fluid within the endometrium at the fundal area. Along the posterior aspect of the uterine fundus there is a 2 x 1.7 cm area of heterogeneous decreased echogenicity consistent with a fibroid similar to the previous exam. Nabothian cysts are noted. LEFT OVARY: [id number] with a volume of 5ml. Abundant fluid-filled bowel loops are present in the pelvis in both adnexal areas making evaluation difficult. The right ovary was not able to be visualized. The left ovary had an unremarkable appearance. A nonspecific fluid collection is present in the left adnexal region measuring 4 x 1.3 cm. This could represent a hydrosalpinx however the ultrasound appearance is not typical for that entity. IMPRESSION: 1. Possible small endometrial polyp with uterine fibroid not significantly changed. 2. Nonspecific fluid collection left adnexal region at 4 x 1.3 cm which could represent a hydrosalpinx. Other cystic collections not excluded. Numerous small bowel loops in the pelvis makes sonographic evaluation somewhat difficult. Hysterosalpingogram could confirm. Repeat CT scan with both IV and double dose oral contrast may also provide further evaluation. Dictated by: Nikhil Enrique MD 12/15/2020 08:03 Nikhil Enrique MD in [place] 12/15/2020 08:03
== END ==
LOC: RAD 08:26
PROVIDERS: PCP Emergency Medicine; Visit Provider Emergency Medicine
DX: R10.9 Unspecified abdominal pain (principal); R93.5 Abnormal findings on diagnostic imaging of other abdominal regions, including retroperitoneum
CPT/HCPCS: 76830

== ENCOUNTER → 2020-12-17 13:37 | Outpatient (CLI) | payer BC, SELFPAY ==
[2020-12-17 14:09] LABS: Amphetamine/Metha Screen,Urine Negative ng/ml (<1000); Barbiturates Screen,Urine Negative ng/ml (<200)
[2020-12-17 14:10] LABS: Benzodiazepines Screen,Urine Positive ng/ml (<200)
[2020-12-17 14:11] LABS: Cannabinoid Screen,Urine Positive ng/ml (<50); Cocaine Screen,Urine Negative ng/ml (<300)
[2020-12-17 14:12] LABS: Methadone Screen,Urine Negative ng/ml (<300)
[2020-12-17 14:13] LABS: Opiate Screen,Urine Negative ng/ml (<300)
[2020-12-17 14:14] LABS: Phencyclidine Screen,Urine Negative ng/ml (<25)
== END ==
PROVIDERS: Visit Provider Emergency Medicine
DX: Z79.899 Other long term (current) drug therapy (principal)
CPT/HCPCS: 80305

== ENCOUNTER 2021-03-23 12:23 | Emergency (ER) | payer SELFPAY ==
[2021-03-23 12:35] VITALS: BP 121/72; PULSE 80; RESP 16; TEMP 37; O2SAT 98; BMI 21.9
--- NOTE | 2021-03-23 12:35 | XR_ITS ---
PROCEDURE: XR SHOULDER LT MIN 2V CLINICAL INDICATION: PAIN COMPARISON: CR SHOU3L [id number] from 07/17/2014 FINDINGS: There is and old midshaft clavicular fracture. Fracture is nondisplaced. There is mild inferior angulation of the distal fracture fragment. The joint spaces are well-preserved. No significant degenerative/arthritic changes. No erosive changes evident. Other findings:None. IMPRESSION: No acute finding. Old midshaft clavicular fracture Dictated by: Nikhil Enrique MD 03/23/2021 15:14 Nikhil Enrique MD in [place] 03/23/2021 15:14
--- NOTE | 2021-03-23 12:45 | HMH.EDUTC ---
[facility] [place] Disposition Clinical Impression: Muscle spasm Disposition: Home, Self-Care Condition on Discharge: Good Instructions: DI for Muscle Spasm, Methocarbamol, Etodolac Additional Instructions: *Etodolac jake 8 hours with meal as needed for pain/inflammation *Not additional anti-inflammatory like Ibuprofen, motrin, aleve, advil with the above amount of Etodolac. You can still take Tylenol every 4 hours as needed if you need something else for pain *Ice 20 minutes every 2 hours for the first 48 hours after the initial injury followed by moist heat every 20 minutes 3-4 times a day to affected area *Muscle relaxer as prescribed as needed for muscle spasms but remember, it WILL cause drowsiness You cannot take it and drive, operate machinery or care for small children. *Keep this area active, no movement leads to more stiffness, However take it easy and avoid heavy lifting pushing or pulling *Follow up with you family doctor if no improvement for further treatment Prescriptions: Etodolac 200 mg PO Q8HP PRN #20 cap PRN Reason: Moderate Pain Transmission Status: Pending to [facility] methocarbamoL [Methocarbamol] 750 mg PO BID PRN #10 tab PRN Reason: Muscle Spasm Transmission Status: Pending to [facility] Referrals: Osmin Mathur MD [Primary Care Provider] - As needed Forms: Work/School Release Time of Disposition: 13:21 Medical Decision Making - Zen Inquiry Pt receiving controlled substance: No Zen was queried for this patient: No Vital Signs: 03/23/21 12:35 Temperature 98.6 F Temperature Source Oral Pulse Rate [Left] 80 Respiratory Rate 16 Blood Pressure [Right Arm] 121/72 Blood Pressure Mean [Right Arm] 88 02 Sat by Pulse Oximetry 98 Orders (Tests/Meds): ORDERS Category Date Time Status XR shoulder LT min 2V Stat Exams 03/23/21 12:35 Taken - Radiology Data #1 Image(s): Shoulder Image Reviewed: Yes I reviewed the patient's radiology image Preliminary Findings: No Fracture Seen [facility] [place] HPI - General Stated complaint: left shoulder pain Time Seen by Provider: 03/23/21 12:45 Mode of Arrival: Ambulatory Source of Information: Patient Limitations: No Limitations Description of Symptoms (Recalled from Triage Doc. by RN): pt c/o of L shoulder pain. she states she was placing objects on high shelves on 03/19 and felt like she pulled something. HEENT Symptoms (Recalled from RN notes): No Resp Symptoms (Recalled from RN notes): No Skin Symptoms (Recalled from RN notes): No MS Symptoms (Recalled from RN notes): Yes (L shoulder pain) Functional Status (Recalled from RN notes): na - History of Present Illness Provider Complaint: Patient states that over the weekend she was lifting heavy objects and putting them on the shelf and felt something pull in her left shoulder States that she has been having pain ever since when she moves the arm and feeling like she is having spasms so today she came in to get checked - Related Data Previous Rx's Medication Instructions Recorded polyethylene glycoL 3350 [Miralax 17 gm PO DAILYP PRN #1 jar 01/05/20 Powder] ergocalciferol (vitamin D2) 1,250 See Rx Instructions .ROUTE 11/26/20 mcg (50,000 unit) capsule .COMPLEX #5 cap alprazolam 1 mg tablet 1 mg PO TID #90 tab 12/17/20 cholecalciferol (vitamin D3) 25 25 mcg PO DAILY #30 cap 12/17/20 mcg (1,000 unit) capsule Etodolac 200 mg PO Q8HP PRN #20 cap 03/23/21 methocarbamoL [Methocarbamol] 750 mg PO BID PRN #10 tab 03/23/21 Allergies Allergy/AdvReac Type Severity Reaction Status Date / Time No Known Allergies Allergy Verified 12/17/20 09:47 - Worker's Comp Is this a Worker's Comp case?: No [facility] History - Hepatitis A Screen Drug use history?: No High risk sexual behaviors?: No History of sexually transmitted infection?: No Currently employed?: No Childcare worker?: No Do you have indoor plumbing?: Yes Do you have electricity?: Yes Attestation statement:: This pa
[2021-03-23 13:26] VITALS: BP 121/72; PULSE 80; RESP 16; TEMP 37
== END 2021-03-23 13:27 | disposition home or self-care (01) ==
PROVIDERS: Emergency Provider Nurse Practitioner; PCP Emergency Medicine
DX: M62.838 Other muscle spasm (principal); M25.512 Pain in left shoulder; F41.8 Other specified anxiety disorders; F17.210 Nicotine dependence, cigarettes, uncomplicated
CPT/HCPCS: 73030; 99202; G0463

== ENCOUNTER → 2021-03-29 18:24 | Outpatient (CLI) | payer SELFPAY ==
[2021-03-29 19:17] LABS: Amphetamine/Metha Screen,Urine Negative ng/ml (<1000); Barbiturates Screen,Urine Negative ng/ml (<200)
[2021-03-29 19:18] LABS: Benzodiazepines Screen,Urine Negative ng/ml (<200)
[2021-03-29 20:44] LABS: Cannabinoid Screen,Urine Negative ng/ml (<50)
[2021-03-29 20:45] LABS: Cocaine Screen,Urine Negative ng/ml (<300); Methadone Screen,Urine Negative ng/ml (<300)
[2021-03-29 20:46] LABS: Opiate Screen,Urine Negative ng/ml (<300)
[2021-03-29 20:47] LABS: Phencyclidine Screen,Urine Negative ng/ml (<25)
== END ==
LOC: LAB.DROPOF 18:25
PROVIDERS: Visit Provider Emergency Medicine
DX: Z79.899 Other long term (current) drug therapy (principal)
CPT/HCPCS: 80305

== ENCOUNTER 2021-05-05 07:53 | Emergency (ER) | payer SELFPAY ==
[2021-05-05 07:54] VITALS: BP 124/74; PULSE 77; RESP 16; TEMP 36.6; O2SAT 98; BMI 22.7
--- NOTE | 2021-05-05 08:45 | HMH.EDGENADL ---
ED Disposition Clinical Impression: Gastroenteritis Disposition: Home, Self-Care Condition on Discharge: Good Instructions: DI for Nausea -- Adult Prescriptions: Promethazine HCl [Phenergan 25mg tab] 25 mg PO BID #10 tab Transmission Status: Pending to [facility] Referrals: Osmin Mathur MD [Primary Care Provider] - - Critical Care Critical Care Time: No Attestation: On 05/05/21, the high probability of a clinically significant, sudden or life threatening deterioration of the following system(s) required my full and direct attention, intervention and personal management. The time I documented below is in addition to time spent performing reported procedures but includes the following listed in this critical care notation. Medical Decision Making - Medical Records Medical records reviewed: Yes: I reviewed the patient's medical records. - Zen Inquiry Pt receiving controlled substance: No Vital Signs: 05/05/21 07:54 05/05/21 09:08 Temperature 98 F Temperature Source Oral Pulse Rate 70 Pulse Rate [Radial] 77 Respiratory Rate 16 Blood Pressure 138/86 Blood Pressure [Right Arm] 124/74 Blood Pressure Mean 119 Blood Pressure Mean [Right Arm] 90 Blood Pressure Position [Right Arm] Sitting 02 Sat by Pulse Oximetry 98 99 Oxygen Delivery Method Room Air - Lab Data Lab Results 05/05/21 08:30: SARS-CoV-2 (PCR) Not detected, Influenza A Untype (PCR) Not detected, Influenza Type B (PCR) Not detected 05/05/21 08:35: WBC 4.1 L, RBC 4.98, Hgb 14.0, Hct 42.2, MCV 84.6, MCH 28.0, MCHC 33.1, RDW 15.2, Plt Count 241, MPV 9.0, Neut % (Auto) 42.8, Lymph % (Auto) 44.4, Taney % (Auto) 8.3, Eos % (Auto) 2.6, Baso % (Auto) 1.8, Neut # (Auto) 1.8, Lymph # (Auto) 1.8, Taney # (Auto) 0.3, Eos # (Auto) 0.1, Baso # (Auto) 0.1 05/05/21 08:35: Sodium 139, Potassium 3.5, Chloride 104, Carbon Dioxide 27, Anion Gap 11.5, BUN 13, Creatinine 0.60, Estimated Creat Clear 122, Estimated GFR 108, Est GFR ( Amer) 130, Glucose 99, Calcium 9.5, Total Bilirubin 0.6, AST 107 H, ALT 56, Alkaline Phosphatase 165 H, Total Protein 7.6, Albumin 4.8, Globulin 2.8, Albumin/Globulin Ratio 1.7, Lipase 390 H 05/05/21 09:00: Urine Color Yellow, Urine Appearance Clear, Urine pH 8.0, Ur Specific [place] 1.020, Urine Protein Negative, Urine Glucose (UA) Negative, Urine Ketones Negative, Urine Blood Trace-i, Urine Nitrate Negative, Urine Bilirubin Negative, Urine Urobilinogen 0.2, Ur Leukocyte Esterase Negative, Urine RBC 3-5, Urine WBC 3-5, Ur Squamous Epith Cells 3-5, Urine Bacteria None 05/05/21 09:00: Urine HCG, Qual Negative Result diagrams: 05/05/21 08:35 05/05/21 08:35 Orders (Tests/Meds): ED MEDICATIONS Discontinued Medications Generic Name Dose Route Start Last Admin Trade Name Tho PRN Reason Stop Dose Admin Sodium Chloride 1,000 mls @ 999 mls/hr 05/05/21 08:30 05/05/21 08:41 Sod Chlor 0.9% 1000ml Bag IV 05/05/21 09:30 999 mls/hr .Q1H1M NANCY Administration Ketorolac Tromethamine 30 mg 05/05/21 08:20 05/05/21 08:40 Ketorolac 30mg/Ml Vial IV 05/05/21 08:21 30 mg ONCE ONE Administration Ondansetron HCl 4 mg 05/05/21 08:20 05/05/21 08:41 Ondansetron 4mg/2ml Vial IV 05/05/21 08:21 4 mg ONCE ONE Administration - Reevaluation(s) Time: 09:51 Reevaluation #1: On reevaluation, patient is feeling much better. She is tolerating oral intake. Repeat abdominal exam is benign. Patient's lipase is slightly elevated, however she has no tenderness in the area. Patient is elected to do outpatient treatment. Will discharge with short course of antiemetics. Given strict return precautions. Verbalized understanding. Medical Decision Narrative: 45-year-old female presenting with some nausea and vomiting. Findings are consistent with gastritis. Patient's abdominal examination is benign. No acute abdomen. Hemodynamically stable. Work-up initiated. General Adult HPI - General
[2021-05-05 08:50] LABS: Basophils # 0.1 K/mm3 (0-0.2); Basophils % 1.8 % (0.1-2.0); Eosinophils # 0.1 K/mm3 (0.0-0.4); Eosinophils % 2.6 % (0.1-12.0); Hematocrit 42.2 % (37.0-47.0); Lymphocytes # 1.8 K/mm3 (0.7-4.5); Lymphocytes % 44.4 % (10-50); Mean Corpuscular HGB Conc 33.1 g/dL (31.8-35.4); Mean Corpuscular Volume 84.6 fl (81-99); Monocytes # 0.3 K/mm3 (0.1-1.0); Monocytes % 8.3 % (1.7-9.3); Neutrophils # 1.8 K/mm3 (1.8-7.8); Neutrophils % 42.8 % (37.0-80.0); Platelet Count 241 K/mm3 (142-424); Red Blood Count 4.98 M/mm3 (4.20-5.40); Red Cell Distribution Width 15.2 % (11.5-17.5); White Blood Count 4.1 K/mm3 (4.8-10.8)
[2021-05-05 08:51] LABS: Coronavirus 19, PCR Not Detected (NotDetected); Influenza A, PCR Not Detected (NotDetected); Influenza B, PCR Not Detected (NotDetected)
[2021-05-05 08:57] LABS: Chloride 104 mmol/L (98-107); Potassium 3.5 mmoL/L (3.5-5.1); Sodium 139 mmol/L (136-145)
[2021-05-05 08:59] LABS: Alanine Aminotransferase 56 U/L (12-78); Aspartate Amino Transferase 107 U/L (14-36); Blood Urea Nitrogen 13 mg/dl (7-17); Creatinine Clearance Estimated 122 mL/min (50-200); Estimated Glomerular Filt Rate 108 ml/min (>60); GFR (African American) 130 ML/MIN (>60)
[2021-05-05 09:00] LABS: Albumin Level 4.8 g/dl (3.5-5.0); Albumin/Globulin Ratio 1.7 (1.1-1.8); Alkaline Phosphatase 165 U/L (38-126); Anion Gap 11.5 mEq/L (5-15); Bilirubin,Total 0.6 mg/dl (0.2-1.3); Calcium 9.5 mg/dl (8.4-10.2); Carbon Dioxide 27 mmol/L (22.0-30.0); Globulin 2.8 g/dL (1.3-3.2); Glucose 99 mg/dl (74-100); Lipase 390 U/L (23-300); Total Protein,Serum 7.6 g/dl (6.3-8.2)
--- NOTE | 2021-05-05 09:02 | PC.NURSE ---
Helped pt to restroom to try and collect urine sample
--- NOTE | 2021-05-05 09:02 | PC.NURSE ---
pt up to restroom
[2021-05-05 09:08] VITALS: BP 138/86; PULSE 70; O2SAT 99
[2021-05-05 09:20] LABS: Microscopic, Urine URINE MICROSCOPIC (MICROSCOPIC)
[2021-05-05 09:27] LABS: Appearance,Urine CLEAR (Clear); Bilirubin,Urine Negative (Negative); Blood, Urine TRACE-I (Negative); Color,Urine YELLOW (Yellow); Glucose,Urine (UA) Negative (Negative); Ketones,Urine Negative (Negative); Leukocyte Esterase,Urine Negative (Negative); Nitrate,Urine Negative (Negative); Protein,Urine Negative (Negative); Urine Pregnancy, HCG Qual. Negative (Negative); Urobilinogen,Urine 0.2 EU/dl (0.2)
[2021-05-05 10:24] VITALS: BP 128/87; PULSE 65; RESP 16; TEMP 36.8; O2SAT 98
== END 2021-05-05 10:24 | disposition home or self-care (01) ==
PROVIDERS: Emergency Provider Emergency Medicine; PCP Emergency Medicine
DX: K52.9 Noninfective gastroenteritis and colitis, unspecified (principal); F41.8 Other specified anxiety disorders; F17.210 Nicotine dependence, cigarettes, uncomplicated; Z20.822 Contact with and (suspected) exposure to COVID-19
CPT/HCPCS: 80053; 81001; 81025; 83690; 85025; 96365; 96375; 99283; C9803; J2405; U0003; U0005

== ENCOUNTER 2021-05-31 09:00 | Emergency (ER) | payer SELFPAY ==
[2021-05-31 09:13] VITALS: BP 118/50; PULSE 74; RESP 16; TEMP 37; O2SAT 98; BMI 22.7
[2021-05-31 09:27] LABS: UTC Strep Screen (Rapid) Negative (Negative)
--- NOTE | 2021-05-31 09:55 | HMH.EDUTC ---
[facility] [place] Disposition Clinical Impression: Viral syndrome Acute bronchitis Qualifiers: Bronchitis organism: unspecified organism Qualified Code(s): J20.9 - Acute bronchitis, unspecified Sinusitis Qualifiers: Sinusitis location: unspecified location Chronicity: acute Recurrence: non-recurrent Qualified Code(s): J01.90 - Acute sinusitis, unspecified Disposition: Home, Self-Care Condition on Discharge: Good Instructions: DI for Sinusitis, DI for Acute Bronchitis, DI for COVID-19 (Suspected or Confirmed ), Preventing the Spread of Coronavirus Discharge Instructions Additional Instructions: Drink plenty of fluids. Take tylenol or ibuprofen for pain or fever. Take the medications as directed. Follow up with your regular doctor. GO TO THE ER FOR ANY WORSENING SYMPTOMS Quarantine until you know the results of your covid-19 test. If it is positive, the health department should call you and give you further instructions about your length of Quarantine and other things. Notify your school or workplace of your results and follow their instructions regarding return to work/school. The cough medication (promethazine dm) will make you drowsy, so don't drive or operate heavy machinery after taking it. Prescriptions: Promethazine/Dextromethorphan [Promethazine-Dm Syrup] 5 ml PO Q6HP PRN #240 ml PRN Reason: Cough Transmission Status: Received by [facility] methylPREDNISolone [Medrol] 4 mg PO DIRECTED 6 Days #21 packet Transmission Status: Received by [facility] guaiFENesin [Mucinex 600mg tablet] 1 - 2 tab PO BIDP PRN #30 tab PRN Reason: Congestion Transmission Status: Received by [facility] Azithromycin [Z-Jc 250mg Tab*] 250 mg PO UD DOSE PK #6 tab Transmission Status: Received by [facility] Referrals: Osmin Mathur MD [Primary Care Provider] - Forms: Work/School Release Time of Disposition: 10:00 Medical Decision Making - Medical Records Medical records reviewed: No: I reviewed the patient's medical records. - Zen Inquiry Pt receiving controlled substance: No Vital Signs: 05/31/21 09:13 05/31/21 10:06 Temperature 98.6 F 98.6 F Temperature Source Oral Pulse Rate 74 Pulse Rate [Left] 74 Respiratory Rate 16 16 Blood Pressure 118/50 L Blood Pressure [Right Arm] 118/50 L Blood Pressure Mean [Right Arm] 72 02 Sat by Pulse Oximetry 98 - Lab Data Lab results reviewed: Yes: I reviewed the patient's lab results. Lab Results 05/31/21 09:18: Strep Scn Rapid Clinic Negative Orders (Tests/Meds): ORDERS Category Date Time Status Covid-19 Nasal PCR ([facility]) Routine Lab 05/31/21 09:35 Received Strep Screen Confirmation Routine Micro 05/31/21 09:18 Received [facility] UTC HPI - General Stated complaint: RENEE, congestion, weakness, body aches, soa, cough Time Seen by Provider: 05/31/21 09:56 Mode of Arrival: Ambulatory Source of Information: Patient Limitations: No Limitations Description of Symptoms (Recalled from Triage Doc. by RN): pt c/o myalgia, bilateral ear aches, sore throat, cough and RENEE. x3 days HEENT Symptoms (Recalled from RN notes): Yes (RENEE, bilateral ear aches, and sore throat) Resp Symptoms (Recalled from RN notes): Yes (cough) Skin Symptoms (Recalled from RN notes): No MS Symptoms (Recalled from RN notes): No Functional Status (Recalled from RN notes): wnl - History of Present Illness Provider Complaint: She c/o 3 days of chest congestion, nonproductive cough, scratchy throat, sinus congestion, malaise and body aches. She has only had the 1st shot of the covid-19 vaccine. She denies any fever or chills. - Related Data Previous Rx's Medication Instructions Recorded polyethylene glycoL 3350 [Miralax 17 gm PO DAILYP PRN #1 jar 01/05/20 Powder] ergocalciferol (vitamin D2) 1,250 See Rx Instructions .ROUTE 11/26/20 mcg (50,000 unit) capsule .COMPLEX #5 cap cholecalciferol (vitamin D3) 25 25 mcg PO DAILY #30 cap 12/17/20 mcg (1,0
[2021-05-31 10:06] VITALS: BP 118/50; PULSE 74; RESP 16; TEMP 37
== END 2021-05-31 10:07 | disposition home or self-care (01) ==
PROVIDERS: Emergency Provider Nurse Practitioner Family; PCP Emergency Medicine
DX: U07.1 COVID-19 (principal); J20.9 Acute bronchitis, unspecified; J01.90 Acute sinusitis, unspecified; F41.8 Other specified anxiety disorders; F17.210 Nicotine dependence, cigarettes, uncomplicated
CPT/HCPCS: 87880; 99203; C9803; G0463; U0003; U0005

== ENCOUNTER 2021-09-01 12:54 | Emergency (ER) | payer SELFPAY ==
[2021-09-01 12:55] VITALS: BP 121/71; PULSE 73; RESP 18; TEMP 37; O2SAT 99; BMI 22.7
--- NOTE | 2021-09-01 14:12 | HMH.EDUTC ---
[facility] [place] Clinical Impression: Pharyngitis Qualifiers: Pharyngitis/tonsillitis etiology: unspecified etiology Qualified Code(s): J02.9 - Acute pharyngitis, unspecified Disposition: Home, Self-Care Condition on Discharge: Good Instructions: DI for Strep Throat, Strep Throat Additional Instructions: Drink plenty of fluids. Take tylenol or ibuprofen for pain or fever. Take the medications as directed. Follow up with your regular doctor. GO TO THE ER FOR ANY WORSENING SYMPTOMS Throw your tooth brush away and get a new one. Her work excuse needs to count for yesterday also, because that is when her symptoms began. Prescriptions: Amoxicillin [Amoxicillin 500mg Tab] 500 mg PO TID 10 Days #30 tab Transmission Status: Pending to [facility] predniSONE [Deltasone 10mg tablet] 10 mg PO BID 3 Days #6 tab Transmission Status: Pending to [facility] Referrals: Osmin Mathur MD [Primary Care Provider] - Forms: Work/School Release Time of Disposition: 15:01 Medical Decision Making - Medical Records Medical records reviewed: No: I reviewed the patient's medical records. - Zen Inquiry Pt receiving controlled substance: No Vital Signs: 09/01/21 12:55 Temperature 98.6 F Temperature Source Oral Pulse Rate [Right Radial] 73 Respiratory Rate 18 Blood Pressure [Right Arm] 121/71 Blood Pressure Mean [Right Arm] 87 Blood Pressure Source [Right Arm] Automatic Cuff Blood Pressure Position [Right Arm] Sitting 02 Sat by Pulse Oximetry 99 Oxygen Delivery Method Room Air - Lab Data Lab results reviewed: Yes: I reviewed the patient's lab results. Lab Results 09/01/21 14:19: Influenza Type A Ag Negative, Influenza Type B Ag Negative Orders (Tests/Meds): ORDERS Category Date Time Status Rapid Strep Scrn Group A [Strep Scrn Group A (Rapid)] Lab 09/01/21 14:19 Ordered Stat [facility] [place]PI - General Stated complaint: sore throat, runny nose, weakness Time Seen by Provider: 09/01/21 14:13 - History of Present Illness Provider Complaint: She states that she has had a very sore throat, chills and body aches for the past 2 days. She was exposed to strep throat at her work. She has nausea but no vomiting or diarrhea. - Related Data Previous Rx's Medication Instructions Recorded polyethylene glycoL 3350 [Miralax 17 gm PO DAILYP PRN #1 jar 01/05/20 Powder] ergocalciferol (vitamin D2) 1,250 See Rx Instructions .ROUTE 11/26/20 mcg (50,000 unit) capsule .COMPLEX #5 cap cholecalciferol (vitamin D3) 25 25 mcg PO DAILY #30 cap 12/17/20 mcg (1,000 unit) capsule alprazolam 1 mg tablet 1 mg PO TID #90 tab 06/24/21 Amoxicillin [Amoxicillin 500mg Tab] 500 mg PO TID 10 Days #30 tab 09/01/21 predniSONE [Deltasone 10mg tablet] 10 mg PO BID 3 Days #6 tab 09/01/21 Allergies Allergy/AdvReac Type Severity Reaction Status Date / Time No Known Allergies Allergy Verified 09/01/21 14:17 [facility] History - Hepatitis A Screen Attestation statement:: This patient has been screened for Hepatitis A risk factors. I have reviewed the patient's past medical history: Yes Medical History: Reports:: Anxiety, Depression Denies:: Asthma, Chronic Obstructive Pulmonary Disease (COPD), Diabetes Mellitus Type 1, Diabetes Mellitus Type 2, Lung Disease, Seizures Other Medical History: Reports: Liver Disease, Other. Denies: Blood Transfusion Reaction Other Surgeries: Yes: Cholecystectomy, Colonoscopy, Dilation and Curettage, Tubal Ligation, Other Amputation: No Fractures: No - Social History Smoking Status: Current every day smoker Tobacco Type: cigarettes # Packs/Day (cigarettes): 20 Alcohol Intake: never Substance Use Type: former substance user Occupational Status: other Housing: house Household Members: family - Psychiatric History Pschychiatric History:: Reports:: Anxiety, Depression Family Hx:: Cancer, Diabetes, Heart Attack ROS Obtained: Yes All systems reviewed & no add
[2021-09-01 14:31] LABS: UTC Influenza A Antigen Negative (Negative)
[2021-09-01 14:32] LABS: UTC Influenza B Antigen Negative (Negative)
[2021-09-01 15:10] VITALS: BP 121/71; PULSE 73; RESP 18; TEMP 37; O2SAT 99
[2021-09-01 15:17] LABS: Adenovirus,PCR Not Detected (NotDetected); Bordetella Pertussis Not Detected (NotDetected); Chlamydophila Pneumoniae, PCR Not Detected (NotDetected); Coronavirus 19, PCR Not Detected (NotDetected); Coronavirus 229E Not Detected (NotDetected); Coronavirus NL63 Not Detected (NotDetected); Coronavirus OC43 Not Detected (NotDetected); Human Metapneumovirus Not Detected (NotDetected); Influenza A, PCR Not Detected (NotDetected); Influenza AH1, 2009 Not Detected (NotDetected); Influenza AH1, PCR Not Detected (NotDetected); Influenza AH3,PCR Not Detected (NotDetected); Influenza B, PCR Not Detected (NotDetected); Mycoplasma Pneumoniae, PCR Not Detected (NotDetected); Parainfluenza 1, PCR Not Detected (NotDetected); Parainfluenza 2, PCR Not Detected (NotDetected); Parainfluenza 3, PCR Not Detected (NotDetected); Parainfluenza 4, PCR Not Detected (NotDetected); Respiratory Syncytial Virus Not Detected (NotDetected); Rhinovirus/Enterovirus Not Detected (NotDetected)
[2021-09-01 15:20] LABS: Strep Scrn Group A (Rapid) Negative (Negative)
[2021-09-01 19:08] LABS: Coronovirus HKU1,PCR Detected (NotDetected)
== END 2021-09-01 15:10 | disposition home or self-care (01) ==
PROVIDERS: Emergency Provider Nurse Practitioner Family; PCP Emergency Medicine
DX: B34.2 Coronavirus infection, unspecified (principal); J02.9 Acute pharyngitis, unspecified; F41.8 Other specified anxiety disorders; F17.210 Nicotine dependence, cigarettes, uncomplicated
CPT/HCPCS: 87430; 87581; 87632; 87798; 87804; 99213; C9803; G0463; U0003; U0005

== ENCOUNTER → 2021-09-19 09:21 | Outpatient (CLI) | payer SELFPAY ==
[2021-09-19 14:53] LABS: Amphetamine/Metha Screen,Urine Negative ng/ml (<1000)
[2021-09-19 14:54] LABS: Barbiturates Screen,Urine Negative ng/ml (<200)
[2021-09-19 14:58] LABS: Benzodiazepines Screen,Urine Positive ng/ml (<200)
[2021-09-19 14:59] LABS: Cannabinoid Screen,Urine Positive ng/ml (<50); Cocaine Screen,Urine Negative ng/ml (<300)
[2021-09-19 15:07] LABS: Phencyclidine Screen,Urine Negative ng/ml (<25)
[2021-09-19 15:08] LABS: Methadone Screen,Urine Negative ng/ml (<300); Opiate Screen,Urine Negative ng/ml (<300)
== END ==
LOC: LAB.DROPOF 10-01 09:22
PROVIDERS: Visit Provider Emergency Medicine
DX: Z79.899 Other long term (current) drug therapy (principal)
CPT/HCPCS: 80305

== ENCOUNTER → 2021-12-23 15:08 | Outpatient (CLI) | payer SELFPAY ==
[2021-12-23 13:00] LABS: Basophils # 0.1 K/mm3 (0-0.2); Basophils % 1.2 % (0.1-2.0); Eosinophils # 0.2 K/mm3 (0.0-0.4); Eosinophils % 2.9 % (0.1-12.0); Hematocrit 38.1 % (37.0-47.0); Hemoglobin 12.3 g/dL (12.2-16.2); Lymphocytes % 34.2 % (10-50); Mean Corpuscular HGB Conc 32.3 g/dL (31.8-35.4); Mean Corpuscular Hemoglobin 26.7 pg (27.0-31.2); Mean Corpuscular Volume 82.7 fl (81-99); Mean Platelet Volume 10.3 fl (7.4-10.4); Monocytes # 0.3 K/mm3 (0.1-1.0); Monocytes % 5.8 % (1.7-9.3); Neutrophils # 3.2 K/mm3 (1.8-7.8); Neutrophils % 55.7 % (37.0-80.0); Platelet Count 216 K/mm3 (142-424); Red Blood Count 4.61 M/mm3 (4.20-5.40); Red Cell Distribution Width 14.7 % (11.5-17.5); White Blood Count 5.7 K/mm3 (4.8-10.8)
[2021-12-23 13:12] LABS: Alanine Aminotransferase 27 U/L (12-78); Albumin Level 4.2 g/dl (3.5-5.0); Albumin/Globulin Ratio 1.6 (1.1-1.8); Alkaline Phosphatase 94 U/L (38-126); Anion Gap 9.9 mEq/L (5-15); Aspartate Amino Transferase 29 U/L (14-36); Blood Urea Nitrogen 11 mg/dl (7-17); Calcium 9.1 mg/dl (8.4-10.2); Carbon Dioxide 27 mmol/L (22.0-30.0); Chloride 106 mmol/L (98-107); Cholesterol 145 mg/dl (140-200); Estimated Glomerular Filt Rate 132 ml/min (>60); GFR (African American) 160 ML/MIN (>60); Globulin 2.6 g/dL (1.3-3.2); Glucose 99 mg/dl (74-100); HDL Cholesterol 73 mg/dl (40-60); Potassium 3.9 mmoL/L (3.5-5.1); Sodium 139 mmol/L (136-145); Total Protein,Serum 6.8 g/dl (6.3-8.2); Triglycerides 37 mg/dl (30-150); VLDL Cholesterol 7 mg/dL (0-40)
[2021-12-23 13:13] LABS: Bilirubin,Total < 0.1 mg/dl (0.2-1.3)
[2021-12-23 13:23] LABS: Direct LDL Cholesterol 44.14 mg/dL (100-129)
[2021-12-23 13:29] LABS: 25-OH Vitamin D, Total 32.1 ng/mL (30-100)
[2021-12-23 13:31] LABS: Free T4 (Free Thyroxine) 1.17 ng/dl (0.78-2.19)
[2021-12-23 13:45] LABS: Thyroid Stimulating Hormone 0.72 uIU/mL (0.465-4.68)
[2021-12-24 08:18] LABS: FSH 23.3 mIU/mL (.); LH 12.5 mIU/mL (.)
== END ==
LOC: LAB 15:08
PROVIDERS: Visit Provider Nurse Practitioner Family
DX: I10 Essential (primary) hypertension (principal); R53.83 Other fatigue; E55.9 Vitamin D deficiency, unspecified
CPT/HCPCS: 80053; 80061; 82306; 83001; 83002; 84439; 84443; 85025

== ENCOUNTER 2022-02-13 06:44 | Emergency (ER) | payer SELFPAY ==
[2022-02-13] VITALS (7 sets, daily range): BP systolic 110–162; BP diastolic 57–90; PULSE 59–89; RESP 16–20; TEMP 36.6; O2SAT 95–100; BMI 22.7
[2022-02-13 06:59] LABS: Adenovirus,PCR Not Detected (NotDetected); Bordetella Pertussis Not Detected (NotDetected); Chlamydophila Pneumoniae, PCR Not Detected (NotDetected); Coronavirus 19, PCR Not Detected (NotDetected); Coronavirus 229E Not Detected (NotDetected); Coronavirus NL63 Not Detected (NotDetected); Coronavirus OC43 Not Detected (NotDetected); Coronovirus HKU1,PCR Not Detected (NotDetected); Human Metapneumovirus Not Detected (NotDetected); Influenza A, PCR Not Detected (NotDetected); Influenza AH1, 2009 Not Detected (NotDetected); Influenza AH1, PCR Not Detected (NotDetected); Influenza AH3,PCR Not Detected (NotDetected); Influenza B, PCR Not Detected (NotDetected); Mycoplasma Pneumoniae, PCR Not Detected (NotDetected); Parainfluenza 1, PCR Not Detected (NotDetected); Parainfluenza 2, PCR Not Detected (NotDetected); Parainfluenza 3, PCR Not Detected (NotDetected); Parainfluenza 4, PCR Not Detected (NotDetected); Respiratory Syncytial Virus Not Detected (NotDetected)
--- NOTE | 2022-02-13 07:00 | PC.NURSE ---
Pt unable to provide urine sample at this time
[2022-02-13 07:26] LABS: Basophils # 0.1 K/mm3 (0-0.2); Basophils % 2.3 % (0.1-2.0); Eosinophils # 0.2 K/mm3 (0.0-0.4); Eosinophils % 2.9 % (0.1-12.0); Hematocrit 44.3 % (37.0-47.0); Hemoglobin 14.1 g/dL (12.2-16.2); Lymphocytes # 1.7 K/mm3 (0.7-4.5); Lymphocytes % 32.6 % (10-50); Mean Corpuscular HGB Conc 31.9 g/dL (31.8-35.4); Mean Corpuscular Hemoglobin 27.3 pg (27.0-31.2); Mean Corpuscular Volume 85.7 fl (81-99); Mean Platelet Volume 9.9 fl (7.4-10.4); Monocytes # 0.4 K/mm3 (0.1-1.0); Monocytes % 7.8 % (1.7-9.3); Neutrophils # 2.8 K/mm3 (1.8-7.8); Neutrophils % 54.5 % (37.0-80.0); Platelet Count 224 K/mm3 (142-424); Red Blood Count 5.17 M/mm3 (4.20-5.40); Red Cell Distribution Width 15.3 % (11.5-17.5); White Blood Count 5.2 K/mm3 (4.8-10.8)
[2022-02-13 07:35] LABS: Alanine Aminotransferase 86 U/L (12-78); Albumin Level 4.2 g/dl (3.5-5.0); Albumin/Globulin Ratio 1.4 (1.1-1.8); Alkaline Phosphatase 324 U/L (38-126); Anion Gap 10.3 mEq/L (5-15); Aspartate Amino Transferase 94 U/L (14-36); Bilirubin,Total 0.3 mg/dl (0.2-1.3); Blood Urea Nitrogen 11 mg/dl (7-17); Calcium 8.4 mg/dl (8.4-10.2); Carbon Dioxide 24 mmol/L (22.0-30.0); Chloride 106 mmol/L (98-107); Creatinine Clearance Estimated 144 mL/min (50-200); Estimated Glomerular Filt Rate 132 ml/min (>60); GFR (African American) 160 ML/MIN (>60); Globulin 2.9 g/dL (1.3-3.2); Glucose 121 mg/dl (74-100); Potassium 3.3 mmoL/L (3.5-5.1); Sodium 137 mmol/L (136-145); Total Protein,Serum 7.1 g/dl (6.3-8.2)
--- NOTE | 2022-02-13 07:41 | PC.NURSE ---
pt in the bathroom, attempting to urinate for a sample
[2022-02-13 07:42] LABS: C-Reactive Protein 1.3 mg/L (0-4)
--- NOTE | 2022-02-13 07:52 | PC.NURSE ---
unable to urinate at this time
[2022-02-13 07:53] LABS: Erythrocyte Sedimentation Rate 11 mm/hr (0-20)
--- NOTE | 2022-02-13 07:53 | PC.NURSE ---
warm blanket given to pt
[2022-02-13 07:55] LABS: Procalcitonin 0.047 ng/mL (0.0-2.0)
--- NOTE | 2022-02-13 08:16 | HMH.EDGENADL ---
Discharge Plan Disposition Patient Disposition: Home, Self-Care Condition: Good Prescriptions Prescriptions: New ondansetron 4 mg tablet,disintegrating 4 mg PO Q6HP PRN (Reason: nausea and vomiting) 4 Days Qty: 10 0RF No Action alprazolam 1 mg tablet 1 mg PO TID Qty: 90 2RF Referrals Follow up/Referrals: Osmin Mathur MD [Primary Care Provider] - See instructions Clinical Impressions Clinical Impression: Nausea and vomiting in adult patient Discharge ED Provider: Aurelio Herzog General Adult HPI General Chief complaint: Upper Respiratory Infection Stated complaint: Cough,fever,vomiting,weakness,sore throat Time Seen by Provider: 02/13/22 08:00 Mode of Arrival: Ambulatory Source of Information: Patient Limitations: No Limitations Description of Symptoms (Recalled from ER Triage Doc. by RN): PT REPORTS COUGH, CONGESTION, NAUSEA AND VOMITINGX 3 DAYS. NO VOMITING X 12 HOURS. History of Present Illness HPI narrative: This is a 46-year-old female with history of anxiety, COPD who is presenting with concern for nausea and vomiting, cough, congestion. Patient states that this started on Sunday, 3 days prior to arrival. Since that time, has gotten worse. Patient states that she has been unable to tolerate much p.o. intake and is feeling weak because of that. Cough is nonproductive, vomiting is nonbilious/nonbloody. Denies chest pain, fevers, chills, productive cough, chest pain, shortness of breath, but has been wheezing audibly. She has tried taking Tylenol and ibuprofen, that has not helped. Nothing particular makes it better. Nothing in particular makes it worse. Related Data Previous Rx's Medication Instructions Recorded alprazolam 1 mg tablet 1 mg PO TID Anxiety #90 tabs 12/23/21 ondansetron 4 mg disintegrating 4 mg PO Q6HP PRN nausea and 02/13/22 tablet vomiting 4 days #10 tabs Allergies Allergy/AdvReac Type Severity Reaction Status Date / Time No Known Allergies Allergy Verified 12/23/21 09:20 [facility] Medical History (Updated 02/13/22 @ 08:53 by Aurelio Herzog MD) Anxiety Vitamin D deficiency Surgical History (Updated 02/13/22 @ 07:14 by Heide Barber RN) Tubal ligation status Social History (Updated 02/13/22 @ 07:15 by Heide Barber RN) Smoking Status: Current every day smoker tobacco type: cigarettes packs per day: 20 alcohol intake: never substance use type: former substance user current occupational status: other Travel in the last 8 weeks: None household members: family housing: house ROS Obtained: Yes All systems reviewed & no additional complaints except as documented Physical Exam General General appearance: alert and in no apparent distress Head Head exam: atraumatic, normocephalic and normal inspection Eye Eye exam: Present normal appearance, PERRL and EOMI ENT ENT exam: Present normal exam, normal oropharynx, mucous membranes moist, TM's normal bilaterally and normal external ear exam Neck Neck exam: Present normal inspection, full ROM and trachea midline; Absent meningismus or lymphadenopathy Chest Chest inspection: Present normal inspection and symmetric chest wall rise; Absent tenderness Respiratory Respiratory exam: Present wheezes; Absent respiratory distress, stridor, accessory muscle use or prolonged expiratory phase Cardiovascular Cardiovascular exam: Present regular rate and normal rhythm; Absent JVD Abdominal Exam Abdominal exam: Present soft and normal bowel sounds; Absent distention, tenderness or guarding Extremities Exam Extremities exam: Present normal inspection, full ROM and normal capillary refill; Absent calf tenderness Back Exam Back exam: Present normal inspection; Absent tenderness Neurological Exam Neurological exam: Present alert and oriented X3 Psychiatric Psychiatric exam: Present normal affect and normal mood Skin Skin exam: Present warm, dry, intact and normal color Lymphatic Lymphatic Findings: no a
[2022-02-13 08:32] LABS: Rhinovirus/Enterovirus Detected (NotDetected)
== END 2022-02-13 09:15 | disposition home or self-care (01) ==
PROVIDERS: Emergency Provider Emergency Medicine; PCP Emergency Medicine
DX: R11.2 Nausea with vomiting, unspecified (principal); R05.9 Cough, unspecified; R50.9 Fever, unspecified; R53.1 Weakness; J02.9 Acute pharyngitis, unspecified
CPT/HCPCS: 80053; 84145; 85025; 85651; 86140; 87581; 87632; 87798; 96361; 96374; 96375; 99284; C9803; J2405; U0003; U0005

== ENCOUNTER → 2022-07-04 13:05 | Outpatient (CLI) | payer SELFPAY ==
[2022-07-04 19:55] LABS: Amphetamine/Metha Screen,Urine Negative ng/ml (<1000); Barbiturates Screen,Urine Negative ng/ml (<200)
[2022-07-04 19:56] LABS: Benzodiazepines Screen,Urine Positive ng/ml (<200); Cannabinoid Screen,Urine Positive ng/ml (<50)
[2022-07-04 19:57] LABS: Cocaine Screen,Urine Negative ng/ml (<300)
[2022-07-04 19:58] LABS: Methadone Screen,Urine Negative ng/ml (<300); Opiate Screen,Urine Negative ng/ml (<300)
[2022-07-04 19:59] LABS: Phencyclidine Screen,Urine Negative ng/ml (<25)
== END ==
LOC: LAB.DROPOF 07-05 10:02
PROVIDERS: PCP Emergency Medicine; Visit Provider Emergency Medicine
DX: Z79.899 Other long term (current) drug therapy (principal)
CPT/HCPCS: 80305

== ENCOUNTER 2022-08-03 11:08 | Emergency (ER) | payer SELFPAY ==
[2022-08-03 11:20] VITALS: BP 106/56; PULSE 64; RESP 20; TEMP 36.9; O2SAT 99; BMI 21.9
--- NOTE | 2022-08-03 11:38 | EXP.UTC ---
Discharge Plan Disposition Patient Disposition: Home, Self-Care Condition: Good Prescriptions Prescriptions: New ondansetron 4 mg Tablet,Disintegrating 4 mg PO Q8H PRN (Reason: Nausea) Qty: 20 0RF No Action alprazolam 1 mg tablet 1 mg PO TID Qty: 90 2RF Referrals Follow up/Referrals: Osmin Mathur MD [Primary Care Provider] - See instructions Activity Restrictions/Add. Instructions Additional Instructions/Restrictions: Drink plenty of fluids. Take tylenol or ibuprofen for pain or fever. Take the medications as directed. Follow up with your regular doctor. GO TO THE ER FOR ANY WORSENING SYMPTOMS Quarantine until you know the results of your covid-19 test. Notify your school or workplace of your results and follow their instructions regarding return to work/school. Her symptoms began yesterday, so her excuse needs to count for that day too. Clinical Impressions Clinical Impression: Acute viral syndrome Stand Alone Forms Stand Alone Forms: Work/School Release Instructions Patient Instructions: DI for Viral Syndrome, Coronavirus Disease 2019, Preventing the Spread of Coronavirus Discharge Instructions Discharge ED Provider: Jamal Miguel [facility] General Stated complaint: Congestion loss appetite fever SOA Time Seen by Provider: 08/03/22 11:38 History of Present Illness Provider Complaint: She states that for the past 1 day she has had chills, low grade fever, fatigue, body aches and malaise. She states that she feels like she did when she had covid-19 in the past. Related Data Previous Rx's Medication Instructions Recorded alprazolam 1 mg tablet 1 mg PO TID Anxiety #90 tabs 07/04/22 ondansetron 4 mg disintegrating 4 mg PO Q8H PRN Nausea #20 tabs 08/03/22 tablet Allergies Allergy/AdvReac Type Severity Reaction Status Date / Time No Known Allergies Allergy Verified 08/03/22 11:44 [facility] [place] Disclaimer: The information contained in this section may have been updated after the patient was seen, as this information can be updated by other users. Medical History Anxiety Vitamin D deficiency Surgical History Tubal ligation status Social History Smoking Status: Current every day smoker tobacco type: cigarettes packs per day: 20 alcohol intake: never substance use type: former substance user current occupational status: other Travel in the last 8 weeks: None household members: family housing: house ROS Obtained: Yes All systems reviewed & no additional complaints except as documented Constitutional Constitutional: Reports as per HPI, Reports chills and Reports fever(s) Eyes Eyes: Denies eye discharge ENT Ears, Nose, Mouth, and Throat: Denies dizziness, Denies otalgia and Denies sore throat Cardiovascular Cardiovascular: Denies chest pain Respiratory Respiratory: Denies shortness of breath, Denies chest congestion, Reports cough, Denies stridor and Denies wheezing Gastrointestinal Gastrointestingal: Denies nausea or vomiting Musculoskeletal Musculoskeletal: Reports system reviewed and no additional complaints, except as documented and Denies arthralgias Integumentary/Breasts Skin/Breast: Denies rash Neurologic Neurologic: Denies dizziness and Denies paresthesias Allergic/Immunologic Allergic/Immunologic: Denies wheezing Physical Exam General General appearance: alert and in no apparent distress Head Head exam: atraumatic, normocephalic and normal inspection Eye Eye exam: Present normal appearance, PERRL and EOMI ENT ENT exam: Present normal exam, normal oropharynx, mucous membranes moist, TM's normal bilaterally and normal external ear exam Neck Neck exam: Present normal inspection, full ROM and trachea midline; Absent meningismus or lymphadenopathy Chest Chest inspection: Presen
[2022-08-03 12:44] VITALS: BP 106/56; PULSE 64; RESP 20; TEMP 36.9; O2SAT 99
== END 2022-08-03 12:43 | disposition home or self-care (01) ==
PROVIDERS: Emergency Provider Nurse Practitioner Family; PCP Emergency Medicine
DX: B34.9 Viral infection, unspecified (principal); R09.89 Other specified symptoms and signs involving the circulatory and respiratory systems; R06.02 Shortness of breath; R50.9 Fever, unspecified
CPT/HCPCS: 99212; 99213; C9803; G0463; U0003; U0005

== ENCOUNTER 2023-06-28 12:27 | Outpatient (CLI) | payer MEDICAID, SELFPAY ==
[2023-06-28 12:38] LABS: Basophils # 0.1 K/mm3 (0-0.2); Basophils % 1.6 % (0.1-2.0); Eosinophils # 0.2 K/mm3 (0.0-0.4); Eosinophils % 3.9 % (0.1-12.0); Hematocrit 39.7 % (37.0-47.0); Hemoglobin 13.2 g/dL (12.2-16.2); Lymphocytes # 1.9 K/mm3 (0.7-4.5); Lymphocytes % 41.4 % (10-50); Mean Corpuscular HGB Conc 33.2 g/dL (31.8-35.4); Mean Corpuscular Hemoglobin 27.9 pg (27.0-31.2); Mean Platelet Volume 9.9 fl (7.4-10.4); Monocytes # 0.3 K/mm3 (0.1-1.0); Neutrophils # 2.1 K/mm3 (1.8-7.8); Neutrophils % 46.1 % (37.0-80.0); Platelet Count 201 K/mm3 (142-424); Red Blood Count 4.73 M/mm3 (4.20-5.40); White Blood Count 4.6 K/mm3 (4.8-10.8)
[2023-06-28 12:40] LABS: Chloride 106 mmol/L (98-107)
[2023-06-28 12:41] LABS: Sodium 138 mmol/L (136-145)
[2023-06-28 12:43] LABS: Alanine Aminotransferase 65 U/L (12-78); Albumin Level 4.2 g/dl (3.5-5.0); Albumin/Globulin Ratio 1.6 (1.1-1.8); Alkaline Phosphatase 222 U/L (38-126); Aspartate Amino Transferase 90 U/L (14-36); Bilirubin,Total 0.7 mg/dl (0.2-1.3); Blood Urea Nitrogen 9 mg/dl (7-17); Carbon Dioxide 23 mmol/L (22.0-30.0); Estimated Glomerular Filt Rate 132 ml/min (>60); GFR (African American) 159 ML/MIN (>60); Globulin 2.6 g/dL (1.3-3.2); Total Protein,Serum 6.8 g/dl (6.3-8.2)
[2023-06-28 12:44] LABS: Calcium 9.2 mg/dl (8.4-10.2); Chol/HDL Ratio 2.5 (1-3.5); Cholesterol 194 mg/dl (140-200); Glucose 93 mg/dl (74-100); HDL Cholesterol 77 mg/dl (40-60); Triglycerides 52 mg/dl (30-150); VLDL Cholesterol 10 mg/dL (0-40)
[2023-06-28 12:55] LABS: Direct LDL Cholesterol 79.57 mg/dL (100-129)
[2023-06-28 13:07] LABS: 25-OH Vitamin D, Total < 12.8 ng/mL (30-100)
[2023-06-28 13:21] LABS: Thyroid Stimulating Hormone 0.65 uIU/mL (0.465-4.68)
== END 2023-06-28 23:59 ==
LOC: LAB.DROPOF 12:28
PROVIDERS: PCP Nurse Practitioner Family; Visit Provider Nurse Practitioner Family
DX: R53.83 Other fatigue (principal); E55.9 Vitamin D deficiency, unspecified; Z68.23 Body mass index [BMI] 23.0-23.9, adult
CPT/HCPCS: 80053; 80061; 82306; 84443; 85025

== ENCOUNTER 2023-08-17 00:09 | Emergency (ER) | payer MEDICAID, SELFPAY ==
[2023-08-17 00:11] VITALS: BP 149/90; PULSE 77; RESP 16; TEMP 36.9; O2SAT 100; BMI 24.3
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
[2023-08-17 00:49] VITALS: BP 135/78; PULSE 71; RESP 16; TEMP 36.9; O2SAT 100
== END 2023-08-17 00:50 ==
LOC: ER 00:33
PROVIDERS: Emergency Provider Emergency Medicine; PCP Internal Medicine
DX: Z02.89 Encounter for other administrative examinations (principal); Z65.3 Problems related to other legal circumstances
CPT/HCPCS: 99281

== ENCOUNTER 2024-04-17 07:20 | Emergency (ER) | payer MEDICAID, SELFPAY ==
[2024-04-17 07:22] VITALS: BP 131/83; PULSE 67; RESP 16; TEMP 36.6; O2SAT 99; BMI 23.5
[2024-04-17 07:24] VITALS: BP 131/83; PULSE 68; O2SAT 99
--- NOTE | 2024-04-17 07:27 | ED_ITS ---
Discharge Plan Disposition Patient Disposition: Home, Self-Care Condition: Good Prescriptions Prescriptions: New cefdinir 300 mg capsule 300 mg PO BID 10 Days Qty: 20 0RF ondansetron 4 mg tablet,disintegrating 4 mg PO Q8H PRN (Reason: nausea and vomiting) 5 Days Qty: 10 0RF No Action Vraylar 1.5 mg capsule 1.5 mg PO DAILY Qty: 90 3RF alprazolam 1 mg tablet 1 mg PO DAILY PRN (Reason: Anxiety) Qty: 30 1RF cholecalciferol (vitamin D3) 50 mcg (2,000 unit) capsule 50 mcg PO DAILY Qty: 30 4RF cholecalciferol (vitamin D3) 1,250 mcg (50,000 unit) tablet 1,250 mcg PO WEEKLY Qty: 7 2RF Referrals Follow up/Referrals: Fco Butcher, [Primary Care Provider] - See instructions Activity Restrictions/Add. Instructions Additional Instructions/Restrictions: As we discussed, it appears that you have a urinary tract infection that, based on your systemic symptoms and some of the location of your pain, would be categorized as a kidney infection or pyelonephritis which is the medical term for kidney infection. I have prescribed a 10-day course of antibiotics and nausea medication. Please make sure you are staying hydrated as well. Your kidney function and white blood cell count were within normal limits. You did have some blood in your urinalysis that probably is related to your menopause but follow-up with your PCP. Please return with any new or worsening symptoms. Clinical Impressions Clinical Impression: Pyelonephritis Stand Alone Forms Stand Alone Forms: Work/School Release Instructions Patient Instructions: DI for Urinary Tract Infection (UTI), DI for Urinary Tract Infection in Children Print Language Print Language: Nepali Discharge ED Provider: Renzo Swain General Adult HPI General Chief complaint: Urogenital-Female Stated complaint: headache, vomiting, body aches, chills, Time Seen by Provider: 04/17/24 07:27 History of Present Illness HPI narrative: The patient presents with a chief complaint of feeling very sick since this morning, with symptoms worsening since getting up. The patient suspects a possible kidney infection, which started yesterday morning. The patient has a history of kidney infections, but it has been a long time since the last one. The patient reports not having a period for a year but recently started menstruating again, which required the use of tampons. The patient believes this may be related to the current symptoms. The patient denies pain with urination but reports generalized body pain and discomfort. The patient also reports mild abdominal pain, which may be related to vomiting. The patient experiences nausea and vomiting but denies any history of kidney stones. The patient reports feeling hot and cold but is unsure if this is related to the abdominal discomfort. The patient also reports a mild earache, which may be related to the headache. 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 The patient has not taken any medications for the current symptoms and has no known allergies to antibiotics. The patient mentions having to urinate frequently yesterday. The patient also reports that symptoms started with what felt like a kidney infection yesterday morning, which has gotten worse since waking up today. The patient describes experiencing head and body pain that has accelerated. Please note that above description of symptoms, in this electronic medical record under categorization of recalled from ER triage doctor by RN are reflective of an initial nursing assessment, however, is not reflective of my full history and physical exam that was personally taken and clarified. Consequentially, this preceding description of symptoms, which may include the patient's categorized chief complaint in the EMR, do not reflect my personal clinical impression, and the ultimate description of history of present illness and patient stated complaints should be deferred to this section of the note. Unless stated otherwise or congruent with this section of the note, additional signs, symptoms, or incongruence should be interpreted as inaccurate with my clinical impression. Related Data Previous Rx's ?Medication ?Instructions ?Recorded cholecalciferol (vitamin D3) 1,250 1,250 mcg PO WEEKLY #7 tabs 06/29/23 mcg (50,000 unit) tablet cholecalciferol (vitamin D3) 50 50 mcg PO DAILY #30 caps 06/29/23 mcg (2,000 unit) capsule cariprazine 1.5 mg capsule 1.5 mg PO DAILY #90 caps 10/18/23 (Vraylar) alprazolam 1 mg tablet 1 mg PO DAILY PRN Anxiety #30 tabs 12/19/23 cefdinir 300 mg capsule 300 mg PO BID 10 days #20 caps 04/17/24 ondansetron 4 mg disintegrating 4 mg PO Q8H PRN nausea and 11/14/24 tablet vomiting 5 days #10 tabs Allergies Allergy/AdvReac Type Severity Reaction Status Date / Time No Known Allergies Allergy Verified 12/19/23 15:57 [facility] Disclaimer: The information contained in this section may have been updated after the patient was seen, as this information can be updated by other users. Medical History Medical clearance for incarceration Surgical History Tubal ligation status Social History Smoking Status: Current every day smoker tobacco type: cigarettes packs per day: 20 alcohol intake: never substance use type: former substance user current occupational status: other Travel in the last 8 weeks: None household members: family housing: house Other Medical History Have you received the Flu Vaccine for this season: No Have you received the Pneumonia Vaccine: No ROS Obtained: Yes other As per HPI Physical Exam General General appearance: alert and in no apparent distress Head Head exam: atraumatic and normocephalic Eye Eye exam: Present normal appearance Neck Neck exam: Present normal inspection Chest Chest inspection: Present normal inspection and symmetric chest wall rise Respiratory Respiratory exam: Present normal lung sounds bilaterally; Absent respiratory distress Cardiovascular Cardiovascular exam: Present regular rate and normal rhythm Abdominal Exam Abdominal exam: Present soft Neurological Exam Neurological exam: Present alert and oriented X3 Psychiatric Psychiatric exam: Present normal affect and normal mood Skin Skin exam: Present warm and dry Other Other exam information: No abdominal tenderness to palpation, bilateral CVA tenderness to percussion Medical Decision Making Medical Records Medical records reviewed: Yes I reviewed the patient's medical records. Screening: Per USPSTF and CDC recommendations, given the prevalence of disease in our region, it is our hospital?s policy to screen for HIV and viral Hepatitis for all patients aged 18 and over and those with ongoing risk factors. Zen Inquiry Pt receiving controlled substance: No Vital Signs: 04/17/24 07:22 04/17/24 07:24 04/17/24 08:02 Temperature 98 F Temperature Source Oral Pulse Rate 68 60 Pulse Rate [Right] 67 Respiratory Rate 16 Blood Pressure 131/83 131/70 Blood Pressure [Right Arm] 131/83 Blood Pressure Mean [Right Arm] 99 02 Sat by Pulse Oximetry 99 99 98 Oxygen Delivery Method Room Air Room Air Room Air 04/17/24 08:49 Temperature 98.1 F Temperature Source Pulse Rate 58 L Pulse Rate [Right] Respiratory Rate 18 Blood Pressure 128/75 Blood Pressure [Right Arm] Blood Pressure Mean [Right Arm] 02 Sat by Pulse Oximetry Oxygen Delivery Method Lab Data Lab Results 04/17/24 07:21: Urine Color Yellow, Urine Appearance Cloudy, Urine pH 7.0, Ur Specific [place] 1.025, Urine Protein 1+ A, Urine Glucose (UA) Negative, Urine Ketones Negative, Urine Blood 3+ A, Urine Nitrate Positive, Urine Bilirubin 1+ A , Urine Urobilinogen 4.0, Ur Leukocyte Esterase 1+ A, Urine RBC 20-50, Urine WBC 20-50, Ur Squamous Epith Cells 5-10, Urine Bacteria 2+ 04/17/24 07:25: SARS-CoV-2 (PCR) Not detected, Influenza A Untype (PCR) Not detected, Influenza Type B (PCR) Not detected 04/17/24 07:55: WBC 5.7, RBC 4.90, Hgb 13.5, Hct 41.5, MCV 84.8, MCH 27.6, MCHC 32.5, RDW 14.9, Plt Count 217, MPV 9.3, Neut % (Auto) 66.7, Lymph % (Auto) 24.8, [place] % (Auto) 4.2, Eos % (Auto) 2.9, Baso % (Auto) 1.5, Neut # (Auto) 3.8, Lymph # (Auto) 1.4, [place] # (Auto) 0.2, Eos # (Auto) 0.2, Baso # (Auto) 0.1, Sodium 138, Potassium 4.2, Chloride 108 H, Carbon Dioxide 22, Anion Gap 12.2, BUN 11, C reatinine 0.50 L, Estimated Creat Clear 146, Estimated GFR 131, Est GFR ( Amer) 159, Glucose 91, Calcium 9.1, Total Bilirubin 0.6, AST 87 H, ALT 68, A lkaline Phosphatase 159 H, Total Protein 7.5, Albumin 4.6, Globulin 2.9, Albumin/Globulin Ratio 1.6, Lipase 121, Serum HCG, Qual Negative 04/17/24 07:55 04/17/24 07:55 Orders (Tests/Meds): ED MEDICATIONS Discontinued Medications Generic Name Dose Route Start Last Admin Trade Name Freq PRN Reason Stop Dose Admin Belladonna Alkaloids 60 ml 04/17/24 07:35 04/17/24 07:58 Belladonna Alkaloids 60 Ml Ml PO 04/17/24 07:36 60 ml ONCE ONE Administration Ondansetron HCl 4 mg 04/17/24 07:35 04/17/24 07:58 Ondansetron 4mg Odt SL 04/17/24 07:36 4 mg ONCE ONE Administration ORDERS Category Date Time Status CBC w/Auto Diff [Complete Blood Count Auto Diff] Stat Lab 04/17/24 07:55 Completed CMP [Comprehensive Metabolic Panel] Stat Lab 04/17/24 07:55 Completed HCG Qualitative, Serum Stat Lab 04/17/24 07:55 Completed Lipase Stat Lab 04/17/24 07:55 Completed Rapid PCR Covid and Flu A/B Stat Lab 04/17/24 07:25 Completed Urinalysis and Microscopic Stat Lab 04/17/24 07:21 Completed Urine Culture Stat Micro 04/17/24 07:21 Results Medical Decision Narrative: Patient with history and exam per above presenting for evaluation of bilateral flank pain Diagnoses considered include pyelonephritis, urolithiasis, cystitis, acute kidney injury, among others ED workup and treatment included: ED MEDICATIONS Discontinued Medications Generic Name Dose Route Start Last Admin Trade Name Freq PRN Reason Stop Dose Admin Belladonna Alkaloids 60 ml 04/17/24 07:35 04/17/24 07:58 Belladonna Alkaloids 60 Ml Ml PO 04/17/24 07:36 60 ml ONCE ONE Administration Ondansetron HCl 4 mg 04/17/24 07:35 04/17/24 07:58 Ondansetron 4mg Odt SL 04/17/24 07:36 4 mg ONCE ONE Administration ORDERS Category Date Time Status CBC w/Auto Diff [Complete Blood Count Auto Diff] Stat Lab 04/17/24 07:55 Completed CMP [Comprehensive Metabolic Panel] Stat Lab 04/17/24 07:55 Completed HCG Qualitative, Serum Stat Lab 04/17/24 07:55 Completed Lipase Stat Lab 04/17/24 07:55 Completed Rapid PCR Covid and Flu A/B Stat Lab 04/17/24 07:25 Completed Urinalysis and Microscopic Stat Lab 04/17/24 07:21 Completed Urine Culture Stat Micro 04/17/24 07:21 Results Labs were independently interpreted by me, significant for pyuria, hematuria, bacteriuria, creatinine within normal limits I performed [id number] ultrasound of bilateral kidneys, revealing no evidence of hydronephrosis. My clinical impression at this time is most consistent with hemorrhagic cystitis versus nonobstructive urolithiasis I discussed my clinical impression with patient and answered all questions. At this time, the evidence for any other entities in the differential is insufficient to warrant any further testing or ED observation. This was explained to the patient. The patient was advised that persistent or worsening symptoms require further evaluation. Critical Care Critical Care Time Critical Care Time: No
--- NOTE | 2024-04-17 07:35 | PC.NURSE ---
RONAL CAREY at for pt marcosal
[2024-04-17 07:38] LABS: Microscopic, Urine URINE MICROSCOPIC (MICROSCOPIC)
[2024-04-17 07:40] LABS: Appearance,Urine CLOUDY (Clear); Blood, Urine 3+ (Negative); Color,Urine YELLOW (Yellow); Glucose,Urine (UA) Negative (Negative); Ketones,Urine Negative (Negative); Leukocyte Esterase,Urine 1+ (Negative); Nitrate,Urine POSITIVE (Negative); Protein,Urine 1+ (Negative); Specific Gravity, Urine 1.025 (1.005-1.030)
[2024-04-17 07:40] LABS: Coronavirus 19, PCR Not Detected (NotDetected); Influenza A, PCR Not Detected (NotDetected); Influenza B, PCR Not Detected (NotDetected)
[2024-04-17 07:50] LABS: Bacteria,Urine 2+ /lpf; Bilirubin,Urine 1+ (Negative); RBC,Urine 20-50 #/hpf (0-3); WBC,Urine 20-50 #/hpf (0-3)
[2024-04-17] MEDS: ONDANSETRON 4MG ODT 4 MG SL (07:58)
[2024-04-17] MEDS: BELLADONNA ALKALOIDS 60 ML ML PO (07:58)
[2024-04-17 08:02] VITALS: BP 131/70; PULSE 60; O2SAT 98
[2024-04-17 08:06] LABS: Basophils # 0.1 K/mm3 (0-0.2); Basophils % 1.5 % (0.1-2.0); Eosinophils # 0.2 K/mm3 (0.0-0.4); Eosinophils % 2.9 % (0.1-12.0); Hematocrit 41.5 % (37.0-47.0); Hemoglobin 13.5 g/dL (12.2-16.2); Lymphocytes # 1.4 K/mm3 (0.7-4.5); Lymphocytes % 24.8 % (10-50); Mean Corpuscular HGB Conc 32.5 g/dL (31.8-35.4); Mean Corpuscular Hemoglobin 27.6 pg (27.0-31.2); Mean Corpuscular Volume 84.8 fl (81-99); Mean Platelet Volume 9.3 fl (7.4-10.4); Monocytes # 0.2 K/mm3 (0.1-1.0); Monocytes % 4.2 % (1.7-9.3); Neutrophils # 3.8 K/mm3 (1.8-7.8); Neutrophils % 66.7 % (37.0-80.0); Platelet Count 217 K/mm3 (142-424); Red Cell Distribution Width 14.9 % (11.5-17.5); White Blood Count 5.7 K/mm3 (4.8-10.8)
[2024-04-17 08:16] LABS: Alanine Aminotransferase 68 U/L (12-78); Albumin Level 4.6 g/dl (3.5-5.0); Albumin/Globulin Ratio 1.6 (1.1-1.8); Alkaline Phosphatase 159 U/L (38-126); Anion Gap 12.2 mEq/L (5-15); Aspartate Amino Transferase 87 U/L (14-36); Bilirubin,Total 0.6 mg/dl (0.2-1.3); Blood Urea Nitrogen 11 mg/dl (7-17); Calcium 9.1 mg/dl (8.4-10.2); Carbon Dioxide 22 mmol/L (22.0-30.0); Chloride 108 mmol/L (98-107); Creatinine Clearance Estimated 146 mL/min (50-200); Estimated Glomerular Filt Rate 131 ml/min (>60); GFR (African American) 159 ML/MIN (>60); Globulin 2.9 g/dL (1.3-3.2); Glucose 91 mg/dl (74-100); Lipase 121 U/L (23-300); Potassium 4.2 mmoL/L (3.5-5.1); Sodium 138 mmol/L (136-145); Total Protein,Serum 7.5 g/dl (6.3-8.2)
[2024-04-17 08:17] LABS: HCG Qualitative, Serum Negative (Negative)
[2024-04-17 08:49] VITALS: BP 128/75; PULSE 58; RESP 18; TEMP 36.7; O2SAT 99
--- NOTE | 2024-04-18 08:44 | PC.NURSE ---
urine culture discussed with , pt dc with cefdinir, ntd
--- NOTE | 2024-04-20 09:10 | PC.NURSE ---
URINE CULTURE DISCUSSED WITH DR GARDNER, NO NEW ORDERS
== END 2024-04-17 08:51 | disposition home or self-care (01) ==
PROVIDERS: Emergency Provider Emergency Medicine; PCP Internal Medicine
DX: N12 Tubulo-interstitial nephritis, not specified as acute or chronic (principal); R11.2 Nausea with vomiting, unspecified; R30.9 Painful micturition, unspecified; M79.10 Myalgia, unspecified site; R51.9 Headache, unspecified
CPT/HCPCS: 80053; 81001; 83690; 84703; 85025; 87086; 87088; 87186; 87636; 99283; Q0162

== ENCOUNTER 2024-09-30 14:46 | Emergency (ER) | payer OTHER, SELFPAY ==
--- NOTE | 2024-09-30 14:53 | HMH.EDGENADL ---
Discharge Plan Disposition Patient Disposition: Home, Self-Care Prescriptions Prescriptions: New methocarbamol 750 mg tablet 1,500 mg PO TID Qty: 90 0RF oxycodone 5 mg tablet 5 mg PO Q6H PRN (Reason: pain) Qty: 12 0RF No Action Vraylar 1.5 mg capsule 1.5 mg PO DAILY Qty: 90 3RF alprazolam 1 mg tablet 1 mg PO DAILY PRN (Reason: Anxiety) Qty: 30 1RF cholecalciferol (vitamin D3) 50 mcg (2,000 unit) capsule 50 mcg PO DAILY Qty: 30 4RF cholecalciferol (vitamin D3) 1,250 mcg (50,000 unit) tablet 1,250 mcg PO WEEKLY Qty: 7 2RF cefdinir 300 mg capsule 300 mg PO BID 10 Days Qty: 20 0RF ondansetron 4 mg tablet,disintegrating 4 mg PO Q8H PRN (Reason: nausea and vomiting) 5 Days Qty: 10 0RF Referrals Follow up/Referrals: Tong Holley DO [Staff Physician] - See instructions Onel Kraft MD [Primary Care Provider] - See instructions Activity Restrictions/Add. Instructions Additional Instructions/Restrictions: Take Tylenol and ibuprofen for pain. Take Robaxin for muscle relaxation. Take oxycodone as needed for breakthrough pain. Weight-bear as tolerated. If you are sitting, sit on soft pillows. Follow-up with orthopedic surgery. Information to call Dr. Holley's office has been provided. Clinical Impressions Clinical Impression: Acute pain of left hip, Closed fracture of left superior pubic ramus Fall Qualifiers: Encounter type: initial encounter Qualified Code(s): W19.XXXA - Unspecified fall, initial encounter Closed fracture of left inferior pubic ramus Qualifiers: Encounter type: initial encounter Qualified Code(s): S32.592A - Other specified fracture of left pubis, initial encounter for closed fracture Print Language Print Language: Mohawk Discharge ED Provider: Schuyler Botello General Adult HPI General Chief complaint: Extremity Injury, Lower Stated complaint: A/O 09-30-24 14:15 Fell and injured left leg Time Seen by Provider: 09/30/24 14:52 Mode of Arrival: Ambulatory Source of Information: Patient Limitations: No Limitations History of Present Illness HPI narrative: This is a 49-year-old female with no significant past medical history presents after a fall. States that she slipped outside, her feet went up in the air and she landed on her left side. Reports pain to the left hip/groin. Has not been able to ambulate due to pain. Denies any numbness or tingling in her lower leg. Denies any worsening back pain. Denies hitting her head or any loss of conscious. No anticoagulation use. Related Data Previous Rx's ?Medication ?Instructions ?Recorded cholecalciferol (vitamin D3) 1,250 1,250 mcg PO WEEKLY #7 tabs 06/29/23 mcg (50,000 unit) tablet cholecalciferol (vitamin D3) 50 50 mcg PO DAILY #30 caps 06/29/23 mcg (2,000 unit) capsule cariprazine 1.5 mg capsule 1.5 mg PO DAILY #90 caps 10/18/23 (Vraylar) alprazolam 1 mg tablet 1 mg PO DAILY PRN Anxiety #30 tabs 12/19/23 cefdinir 300 mg capsule 300 mg PO BID 10 days #20 caps 04/17/24 ondansetron 4 mg disintegrating 4 mg PO Q8H PRN nausea and 04/17/24 tablet vomiting 5 days #10 tabs methocarbamol 750 mg tablet 1,500 mg (2 x 750 mg) PO TID #90 09/30/24 tabs oxycodone 5 mg tablet 5 mg PO Q6H PRN pain #12 tabs 09/30/24 Allergies Allergy/AdvReac Type Severity Reaction Status Date / Time No Known Allergies Allergy Verified 12/19/23 15:57 [facility] Disclaimer: The information contained in this section may have been updated after the patient was seen, as this information can be updated by other users. Medical History Medical clearance for incarceration Surgical History Tubal ligation status Social History Smoking Status: Current every day smoker tobacco type: cigarettes packs per day: 20 alcohol intake: never substance use type: former substance user current occupational status: other Travel in the last 8 weeks?: None household members: family housing: house Have you lived/traveled outside US in past 30 days?: No Contact w/someone who lives/traveled outside US past 30 days?: No Exposure to someone with infectious disease in past 14 days?: No Do you have a fever (greater than 100.4 F or 38 C)?: No Have you tested positive for COVID-19?: No Exposed to someone with COVID-19 in past 14 days?: No Do you have a sore throat?: No Do you have a cough?: No Do you have any weakness?: No Do you have any diarrhea?: No Are you experiencing any unusual bleeding?: No Do you have any muscle aches/pain?: No Do you have any abdominal pain?: No Are you experiencing loss of taste or smell?: No Other Medical History Have you received the Flu Vaccine for this season: No Have you received the Pneumonia Vaccine: No ROS Obtained: Yes All systems reviewed & no additional complaints except as documented Physical Exam General General appearance: alert and in no apparent distress Head Head exam: atraumatic Eye Eye exam: Present normal appearance, PERRL and EOMI Neck Neck exam: Present normal inspection and full ROM Chest Chest inspection: Present symmetric chest wall rise Respiratory Respiratory exam: Present normal lung sounds bilaterally; Absent respiratory distress Cardiovascular Cardiovascular exam: Present regular rate and normal rhythm Abdominal Exam Abdominal exam: Present soft; Absent distention Extremities Exam Extremities exam: Present other (Left lower extremity: Tenderness to the left hip. No deformity. No abnormal rotation or shortening. Neurovascularly intact distally.) Back Exam Back exam: Present normal inspection; Absent tenderness Neurological Exam Neurological exam: Present alert and oriented X3 Psychiatric Psychiatric exam: Present normal affect and normal mood Skin Skin exam: Present warm and dry Medical Decision Making Medical Records Medical records reviewed: Yes I reviewed the patient's medical records. Screening: Per USPSTF and CDC recommendations, given the prevalence of disease in our region, it is our hospital?s policy to screen for HIV and viral Hepatitis for all patients aged 18 and over and those with ongoing risk factors. [employer] In[employer] Pt receiving controlled substance: No Vital Signs: 09/30/24 14:57 09/30/24 15:02 09/30/24 15:31 Temperature 97.7 F Temperature Source Oral Pulse Rate 68 67 Pulse Rate [Left Radial] 70 Respiratory Rate 17 Blood Pressure 140/83 113/75 Blood Pressure [Right Arm] 140/83 Blood Pressure Mean [Right Arm] 102 Blood Pressure Source [Right Arm] Automatic Cuff Blood Pressure Position [Right Arm] Sitting 02 Sat by Pulse Oximetry 98 100 100 Oxygen Delivery Method Room Air Room Air Room Air 09/30/24 16:01 09/30/24 16:46 Temperature Temperature Source Pulse Rate 73 74 Pulse Rate [Left Radial] Respiratory Rate Blood Pressure 142/74 H 114/79 Blood Pressure [Right Arm] Blood Pressure Mean [Right Arm] Blood Pressure Source [Right Arm] Blood Pressure Position [Right Arm] 02 Sat by Pulse Oximetry 100 99 Oxygen Delivery Method Room Air Room Air Orders (Tests/Meds): ED MEDICATIONS Discontinued Medications Generic Name Dose Route Start Last Admin Trade Name Freq PRN Reason Stop Dose Admin Acetaminophen 1,000 mg 09/30/24 15:00 09/30/24 15:41 Acetaminophen 500mg Tab PO 09/30/24 15:01 1,000 mg ONCE ONE Administration Ibuprofen 400 mg 09/30/24 15:00 09/30/24 15:42 Ibuprofen 400 Mg Tablet PO 09/30/24 15:01 400 mg ONCE ONE Administration Methocarbamol 1,500 mg 09/30/24 15:00 09/30/24 15:41 Methocarbamol 500mg Tablet PO 09/30/24 15:01 1,500 mg ONCE ONE Administration Oxycodone HCl 5 mg 09/30/24 15:00 09/30/24 15:41 Oxycodone 5mg Immediate Release Tablet PO 09/30/24 15:01 5 mg ONCE ONE Administration ORDERS Category Date Time Status CT bony pelvis Stat Cat Scan 09/30/24 15:21 Completed Hip XR left minimum 2 views [XR hip LT 2-3V w/pelvis] Exams 09/30/24 15:00 Completed Stat HIV Combo Stat Lab 09/30/24 15:09 Ordered Hepatitis C Ab Qual. W/ RFX Stat Lab 09/30/24 15:09 Ordered Medical Decision Narrative: In summary, this 49-year-old female with no significant past medical history presents to the emergency department today with fall and left hip pain. On initial evaluation patient is afebrile, hemodynamically stable, nontoxic-appearing. Differential diagnosis includes but is not limited to fracture, dislocation, soft tissue injury, muscle strain. Based on these concerns, I ordered x-ray imaging of the left hip and pelvis. Considered CT bony pelvis, however will obtain x-ray imaging first and plan for CT if it is nondiagnostic and patient is unable to ambulate. Patient received Tylenol, ibuprofen, Robaxin, oxycodone for treatment. XR personally interpreted demonstrates possible left IPR fracture however indeterminate. Potentially old. Ordered CT bony pelvis which was independently interpreted by me, revealing left IPR and SPR fractures, nondisplaced . On reassessment patient able to ambulate with crutches. Consulted orthopedic surgery who stated the patient was appropriate for outpatient follow-up and was to weight-bear as tolerated. Provided with a short course of oxycodone and Robaxin for pain control. Ultimately discharged with plan for orthopedic surgery follow-up. Critical Care Critical Care Time Critical Care Time: No
[2024-09-30 14:57] VITALS: BP 140/83; PULSE 70; RESP 17; TEMP 36.5; O2SAT 98; BMI 23.5
--- NOTE | 2024-09-30 15:00 | XR_ITS ---
FINAL REPORT CLINICAL HISTORY: fall, L hip pain FINDINGS: LEFT HIP 2 views of the left hip are obtained. There is a minimally displaced fracture of the lateral superior pubic ramus and mid inferior pubic ramus. No other fracture is identified. IMPRESSION: Acute fractures as above. Reviewed, Interpreted and Dictated by Pritesh Wright MD Transcribed by Angi Parada Authenticated and [facility]
[2024-09-30 15:02] VITALS: BP 140/83; PULSE 68; O2SAT 100
--- NOTE | 2024-09-30 15:16 | PC.NURSE ---
RAD at bedside
--- NOTE | 2024-09-30 15:21 | CT_ITS ---
FINAL REPORT TECHNIQUE: Axial images through the pelvis were performed by computed tomography. Sagittal and coronal reconstruction images were performed. This study was performed with techniques to keep radiation doses as low as reasonably achievable (ALARA). Individualized dose reduction techniques using automated exposure control or adjustment of mA and/or kV according to the patient's size were employed. CLINICAL HISTORY: fall, sacral pain COMPARISON: None FINDINGS: There is a nondisplaced fracture of the left inferior pubic ramus and lateral superior pubic ramus. The hip joint spaces are preserved. The femoral heads have normal smooth contours. There are advanced changes of degenerative disc disease at L5-S1 with endplate sclerosis and moderate bilateral neural foraminal narrowing. No dislocation identified. The appendix is unremarkable. The uterus is anteverted. No pelvic free fluid is seen. There is a cyst or follicle in the left ovary measuring up to 3 cm. IMPRESSION: Pubic rami fractures as above. Reviewed, Interpreted and Dictated by Pritesh Wright MD Transcribed by Sindhu Blanc Authenticated and [facility]
[2024-09-30 15:31] VITALS: BP 113/75; PULSE 67; O2SAT 100
--- NOTE | 2024-09-30 15:33 | PC.NURSE ---
pt going from CT at this time
[2024-09-30] MEDS: OXYCODONE 5MG IMMEDIATE RELEASE TABLET 5 MG PO (15:41)
[2024-09-30] MEDS: ACETAMINOPHEN 500MG TAB 1000 MG PO (15:41)
[2024-09-30] MEDS: METHOCARBAMOL 500MG TABLET 1500 MG PO (15:41)
--- NOTE | 2024-09-30 15:41 | PC.NURSE ---
pt back from CT at this time
[2024-09-30] MEDS: IBUPROFEN 400 MG TABLET PO (15:42)
[2024-09-30 16:01] VITALS: BP 142/74; PULSE 73; O2SAT 100
[2024-09-30 16:46] VITALS: BP 114/79; PULSE 74; O2SAT 99
[2024-09-30] MEDS: OXYCODONE 5MG IMMEDIATE RELEASE TABLET 10 MG PO (17:13)
[2024-09-30 17:37] VITALS: BP 163/47; PULSE 78; RESP 17; TEMP 36.7; O2SAT 98
== END 2024-09-30 17:37 | disposition home or self-care (01) ==
PROVIDERS: Emergency Provider Student in an Organized Health Care Education/Training Program; PCP Family Medicine
DX: S32.512A Fracture of superior rim of left pubis, initial encounter for closed fracture (principal); S32.592A Other specified fracture of left pubis, initial encounter for closed fracture; M25.552 Pain in left hip; W01.10XA Fall on same level from slipping, tripping and stumbling with subsequent striking against unspecified object, initial encounter
CPT/HCPCS: 72192; 73502; 99284

== ENCOUNTER 2024-10-20 12:15 | Outpatient (CLI) | payer OTHER, MEDICAID, SELFPAY ==
--- NOTE | 2024-10-20 12:20 | XR_ITS ---
FINAL REPORT CLINICAL HISTORY: lt hip pain COMPARISON: CT of the pelvis dated 09/30/2024 FINDINGS: LEFT HIP: 3 views of the left hip demonstrate healing fractures of the lateral left superior pubic ramus and the mid left inferior pubic ramus, also seen on the CT of the pelvis dated 09/30/2024. The joint spaces appear normal. The visualized bony structures are well aligned. No soft tissue abnormality is seen. IMPRESSION: Healing fractures of the lateral left superior pubic ramus and mid left inferior pubic ramus. Reviewed, Interpreted and Dictated by Pritesh Wright MD Transcribed by Anabela Dubois Authenticated and [facility]
== END 2024-10-20 23:59 | disposition home or self-care (01) ==
LOC: RAD 12:18
PROVIDERS: PCP Nurse Practitioner Family; Visit Provider Physician Assistant
DX: S32.512D Fracture of superior rim of left pubis, subsequent encounter for fracture with routine healing (principal); S32.592D Other specified fracture of left pubis, subsequent encounter for fracture with routine healing
CPT/HCPCS: 73502

== ENCOUNTER 2024-11-10 08:25 | Outpatient (CLI) | payer OTHER, MEDICAID, SELFPAY ==
--- NOTE | 2024-11-10 08:30 | XR_ITS ---
FINAL REPORT CLINICAL HISTORY: left hip pain..f/u fx COMPARISON: 10/20/2024 FINDINGS: LEFT HIP 2 views of the left hip are obtained. Previously noted fractures at the lateral aspect of the superior pubic rami and inferior pubic rami demonstrate interval healing with callus formation. Visualized joint spaces are normally aligned. There is no acute soft tissue abnormality. IMPRESSION: Interval healing with callus formation of previously noted fractures at the lateral aspect of the superior and inferior pubic rami. Reviewed, Interpreted and Dictated by Pritesh Wright MD Transcribed by Angi Parada Authenticated and [facility]
== END 2024-11-10 23:59 | disposition home or self-care (01) ==
LOC: RAD 08:27
PROVIDERS: PCP Nurse Practitioner Family; Visit Provider Physician Assistant
DX: M25.752 Osteophyte, left hip (principal); S32.512S Fracture of superior rim of left pubis, sequela; S32.592S Other specified fracture of left pubis, sequela
CPT/HCPCS: 73502

== ENCOUNTER 2024-11-18 08:43 | Outpatient (RCR) | payer OTHER, MEDICAID, SELFPAY ==
--- NOTE | 2024-11-18 09:45 | HMH.PTOPEV ---
PT Outpatient Evaluation Rehab PT Outpatient Evaluation Start: 11/18/24 08:48 Freq: Status: Active Protocol: Document 11/18/24 08:50 LOLY (Rec: 11/18/24 09:44 LOLY [id number]) E-signed By Shyam Martínez, PT Outpatient Therapy Subjective History Subjective History Pt is a 49 yof who is referred to [facility] outpatient PT due to a closed fracture of the superior rim of the left pubis resulting from a fall on 09/30. Pt reports that she was walking in the parking lot at work when she slipped and fell and fractured her pelvis. X-rays show appropriate healing of the fracture sites. Pt reports that she recently transitioned off of crutches about 2 weeks ago. Pt reports that she has steadily improved since the injury. Reports that she is hopeful to return to work in December. Pt reports that she still has difficulty walking longer distances, carrying heavier items and rolling over in bed. Occupation: Watch [employer] PMH: None New diagnosis of No cancer in past 12 months? Chief Complaint Pain Symptom Type Ache Symptoms Relieved By Heat,OTC Meds Symptoms Aggravated Standing,Bending/Stooping,Walking By Prior Functional None Limitations Current Functional Lifting,Housework,Standing,Squatting,Walking,Stairs Limitations Symptom Description Intermittent,Activity Dependent Level of pain today 3 (0-10) Pain scale - at its 0 best (0-10) Pain scale - at its 4 worst (0-10) Hip/Knee Eval Gait Observation General Gait Pattern Antalgic Gait,Decrease Weight Bear (L),Decrease Stride Observation Lngth (R) Palpation Tenderness left Hip Palpation Tenderness Findings Hip Palpation TTP 2/4 to anterior pubis Overall Comment MMT Hip Flexion Strength 3 Fair Grade Hip Abduction 2 Poor Strength Grade Hip Adduction 2 Poor Strength Grade Hip Extension 2+ Poor+ Strength Grade Knee Extension 4+ Good+ Strength Grade Knee Flexion 4 Good Strength Grade Lower Extremity Functional Index Activities Today, do you or would you have any difficulty at all with: a.Any of your usual Quite a bit of difficulty work, housework or school activities b. Your usual Quite a bit of difficulty hobbies, recreational or sporting activities c. Getting into or Moderate difficulty out of the bath d. Walking between Moderate difficulty rooms e. Putting on your A little bit of difficulty shoes or socks f. Squatting A little bit of difficulty g. Lifting an object Moderate difficulty , like a bag of groceries from the floor h. Performing light A little bit of difficulty activities around your home i. Performing heavy Quite a bit of difficulty activities around your home j. Getting into or A little bit of difficulty out of a car k. Walking 2 blocks A little bit of difficulty l. Walking a mile Quite a bit of difficulty m. Going up or down Quite a bit of difficulty 10 stairs (about 1 flight of stairs) n. Standing for 1 Quite a bit of difficulty hour o. Sitting for 1 No difficulty hour p. Running on even Extreme difficulty or unable to perform activity ground q. Running on uneven Extreme difficulty or unable to perform activity ground r. Making sharp Extreme difficulty or unable to perform activity turns while running fast s. Hopping Extreme difficulty or unable to perform activity t. Rolling over in A little bit of difficulty bed LEFI Score Lower Extremity 34 Functional Index Score Miscellaneous Dx PT Eval Objective Objective SLS: Unable to initiate on LLE 5xSTS: 18s Outpatient Therapy Assessment Impairments Problems/ Palpation Tenderness,Impaired Strength,Impaired Gait Impairmments Pattern,Impaired Walking,Impaired Standing,Impaired Lifting,Impaired Household Care,Impaired Stair Climbing ,Impaired Squatting,Impaired Work Activities,Impaired Balance,Subjective C/O Pain Prognosis Rehab Potential Good Comment w HEP compliance Clinical Impression Consistent with Yes Diagnosis Consistent with Closed fx of sup. pubic rami Additional details: S32.512A Short Term Goals Number of Weeks 4 Decreased Palpation Yes: 1/4 to TTP assessment above Tenderness Increase Strength Yes: 3+/5 to L hip complex Increase Ability to Yes: 30 minutes without increasing symptoms Stand Improve Balance Yes: TS on uneven surface for 30s Improve LEFI Score Yes: >44 Decrease Subjective Yes: 2/10 at worst to demonstrate improved QOL C/O Pain Patient to be Ind w/ Yes HEP Mail Order Sorter Goals Number of Weeks 8 Decreased Palpation Yes: 0/4 to TTP assessment above Tenderness Increase Strength Yes: 4-4+/5 to L hip complex Improve Gait Pattern Yes: Normalized gait mechanics on level ground without Assistive Device Increase Ability to Yes: 1 hour without increasing symptoms Stand Improve Ability For Yes Household Care Improve Ability to Yes: with proper mechanics Squat Improve Tolerance to Yes: Return to work Work Activities Improve Balance Yes: SLS on L LE for 30s Improve LEFI Score Yes: >55 Decrease Subjective Yes: 0-1/10 at worst to demonstrate improved QOL C/O Pain Patient to be Ind w/ Yes Advanced HEP Outpatient Therapy Plan of Care Treatment Plan May Include Therapeutic Exercise Yes Including Home Exercise Program Manual Therapy Yes Techniques Neuromuscular Re- Yes education Therapeutic Yes Activities to Return to Previous Functional/Work Level Gait Training Yes ADL/Self Care Yes Education Thermal Modalities Yes Electrical Yes Stimulation Ultrasound/ Yes Phonophoresis Iontophoresis Yes Manual Lymphatic Yes Drainage Eval/Re-Eval Yes Frequency Times per week 2 Duration Number of Weeks 6-8 Addendums This patient is a No candidate for social or vocational rehab ? Patient/Guardian Yes verbally acknowledges understanding of treatment program and consents to further treatment? Patient/Guardian Yes verbally acknowledges understanding of diagnosis, prognosis and goals for treatment? Eval Complexity PT Charges 66044 - Moderate Complexity Shoulder/Elbow Eval Shoulder Objective Measurements Elbow Objective Measurements PHYSICIAN CERTIFICATION: I certify the specified therapy services for Malka Gómez are required, authorized, and reviewed every 30 days.
== END 2024-11-18 23:59 | disposition home or self-care (01) ==
LOC: PT 08:43
PROVIDERS: PCP Nurse Practitioner Family; Visit Provider Physician Assistant
DX: S32.512D Fracture of superior rim of left pubis, subsequent encounter for fracture with routine healing (principal); W19.XXXD Unspecified fall, subsequent encounter
CPT/HCPCS: 97162

== ENCOUNTER 2024-12-08 08:33 | Outpatient (CLI) | payer OTHER, SELFPAY ==
--- NOTE | 2024-12-08 08:36 | XR_ITS ---
FINAL REPORT CLINICAL HISTORY: fx f/u to monitor healing fx September 30 COMPARISON: 11/10/2024 FINDINGS: LEFT HIP 2 views of the left hip are obtained. There is no acute fracture or dislocation. Further callus formation is seen of the mid superior and inferior pubic rami consistent with progressive healing. Visualized joint spaces are normally aligned. There is no acute soft tissue abnormality. IMPRESSION: Progressive healing of superior and inferior pubic rami fractures. Reviewed, Interpreted and Dictated by Pritesh Wright MD Transcribed by Angi Parada Authenticated and . [facility]
== END 2024-12-08 23:59 | disposition home or self-care (01) ==
LOC: RAD 08:34
PROVIDERS: PCP Nurse Practitioner Family; Visit Provider Physician Assistant Surgical
DX: S32.512D Fracture of superior rim of left pubis, subsequent encounter for fracture with routine healing (principal); S32.592D Other specified fracture of left pubis, subsequent encounter for fracture with routine healing
CPT/HCPCS: 73502

== ENCOUNTER 2024-12-29 16:00 | Outpatient (RCR) | payer OTHER, MEDICAID, SELFPAY ==
--- NOTE | 2024-12-24 15:37 | HMH.RHREAS ---
Rehab Reassessment Rehab OP Re-assessment Start: 12/10/24 16:02 Freq: Status: Active Protocol: Document 12/24/24 15:28 KUNAL (Rec: 12/24/24 15:35 [email or web address] [id number]) E-signed By Faviola Mar PT Rehab Re-assessment Subjective Subjective Pt reports she feels 90% improved since starting PT. Pt reports she is able to do all functional activities without issue and only minimal soreness, denies true pain. Pt reports she feels she is ready to return to work. Pt reports compliance with HEP. Objective Objective Notes Gait: non-antalgic 5x sit to stand: 12 Palpation: no TTP noted L hip AROM: flex 110, IR 40, ER 40 LLE MMT: 4+/5 grossly Balance: L SLS and tandem stance firm surface EO 30 without LOB Assessment Progress Assessment Progressing as Expected Assessment Notes Pt has attended 5 PT treatment sessions. Pt demonstrated improved LEFS score, subjective report of pain, tenderness to palpation, strength, balance, 5x sit to stand functional outcome measure and gait this date compared to the initial evaluation. Overall, the pt has met most PT goals and is appropriate to discharge to independent [facility] at this time. Patient goals met ST/7 LT/11 Goals Not Met return to work Revised Goals n/a Plan Plan Discharge to independent [facility] Time and Billing Re-Eval Time 10 Re-Eval Billing 0 Units Charge for PT No reassessment? Charge for OT No reassessment? PHYSICIAN CERTIFICATION: I certify the specified therapy services for Malka Gómez are required, authorized, and reviewed every 30 days.
== END 2024-12-29 23:59 | disposition home or self-care (01) ==
LOC: PT 16:00
PROVIDERS: Visit Provider Physician Assistant
DX: S32.512A Fracture of superior rim of left pubis, initial encounter for closed fracture (principal); W19.XXXA Unspecified fall, initial encounter
CPT/HCPCS: 97110; 97530

== ENCOUNTER 2025-01-06 09:32 | Outpatient (CLI) | payer OTHER, MEDICAID, SELFPAY ==
--- NOTE | 2025-01-06 09:36 | XR_ITS ---
FINAL REPORT CLINICAL HISTORY: Left Hip fx COMPARISON: 12/08/2024 FINDINGS: LEFT HIP: Two views of the left hip with an AP view of the pelvis demonstrate the joint spaces are preserved. The femoral heads have normal smooth contours. Healing fractures are noted of the inferior and superior pubic rami with increased callus formation. The inferior ramus fracture line remains visible. No soft tissue abnormality is seen. IMPRESSION: Healing inferior and superior pubic rami fractures. Reviewed, Interpreted and Dictated by Pritesh Wright MD Transcribed by Sindhu Blanc Authenticated and [facility]
== END 2025-01-06 23:59 | disposition home or self-care (01) ==
LOC: RAD 09:33
PROVIDERS: PCP Nurse Practitioner Family; Visit Provider Physician Assistant
DX: S32.592D Other specified fracture of left pubis, subsequent encounter for fracture with routine healing (principal); X58.XXXD Exposure to other specified factors, subsequent encounter
CPT/HCPCS: 73502

== ENCOUNTER 2025-03-29 16:08 | Emergency (ER) | payer MEDICAID, SELFPAY ==
[2025-03-29 16:35] VITALS: BP 170/97; PULSE 68; O2SAT 100
[2025-03-29 16:38] VITALS: BP 170/97; PULSE 72; RESP 16; TEMP 37.1; O2SAT 99; BMI 24.3
--- NOTE | 2025-03-29 16:46 | ED_ITS ---
<Statement entered by Danna Ventura DO - 03/31/25 04:16> I was consulted by the DEBBIE, and we discussed the complexity of problems being addressed. I approve the treatment and management plan for this patient's care in the emergency department, thus performing a substantial portion of the medical decision making. Danna Ventura DO Discharge Plan Disposition Patient Disposition: Home, Self-Care Condition: Good Prescriptions Prescriptions: New amoxicillin-pot clavulanate 875-125 mg tablet 1 tab PO BID Qty: 20 0RF Referrals Follow up/Referrals: Provider,Referral, MD [Primary Care Provider, Medical] - See instructions Activity Restrictions/Add. Instructions Additional Instructions/Restrictions: Today you were evaluated in the emergency department for dental pain. You were given a dose of Augmentin while in the ED and oxycodone. Please follow-up with a dentist. Please use the tooth balls as directed. Please return to the ED for any worsening of your condition. Please take ibuprofen for pain management at home. Clinical Impressions Clinical Impression: Pain, dental Stand Alone Forms Stand Alone Forms: Work/School Release Instructions Patient Instructions: DI for Dental Pain Print Language Print Language: German Discharge ED Provider: Danna Ventura General Adult HPI <Hailey Mcdonald APRN - Last Filed: 03/29/25 19:10> General Chief complaint: Dental/Oral Stated complaint: right side of mouth pain Time Seen by Provider: 03/29/25 16:36 History of Present Illness HPI narrative: patient is a 49-year-old female PMHx chronic poor dental hygiene who presents to the ED with complaints of a right lower molar pain x 2 days. Patient states that over the course of today her pain has worsened. She states she has lost her insurance so she is unable to see a dentist at this time. Patient states she has not been on any recent antibiotics and has not had treatment for this tooth. 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 Related Data Previous Rx's ?Medication ?Instructions ?Recorded amoxicillin 875 mg-potassium 1 tab PO BID #20 tabs clavulanate 125 mg tablet Allergies Allergy/AdvReac Type Severity Reaction Status Date / Time No Known Allergies Allergy Verified 01/06/25 10:04 PFSH <Hailey Mcdonald APRN - Last Filed: 03/29/25 19:10> [facility] Disclaimer: The information contained in this section may have been updated after the patient was seen, as this information can be updated by other users. Medical History Medical clearance for incarceration Surgical History Tubal ligation status Social History Smoking Status: Former smoker tobacco type: cigarettes packs per day: 20 alcohol intake: never substance use type: former substance user current occupational status: other Travel in the last 8 weeks?: None household members: family housing: house Have you lived/traveled outside [place] in past 30 days?: No Contact w/someone who lives/traveled outside [place] past 30 days?: No Exposure to someone with infectious disease in past 14 days?: No Do you have a fever (greater than 100.4 F or 38 C)?: No Have you tested positive for COVID-19?: No Exposed to someone with COVID-19 in past 14 days?: No Do you have a sore throat?: No Do you have a cough?: No Do you have any weakness?: No Do you have any diarrhea?: No Are you experiencing any unusual bleeding?: No Do you have any muscle aches/pain?: No Do you have any abdominal pain?: No Are you experiencing loss of taste or smell?: No Other Medical History Have you received the Flu Vaccine for this season: No Have you received the Pneumonia Vaccine: No <Hailey Mcdonald APRN - Last Filed: 03/29/25 19:10> ROS Obtained: Yes Systems reviewed as appropriate & no additional complaints except as documented Physical Exam <Hailey Mcdonald APRN - Last Filed: 03/29/25 19:10> General General appearance: alert Head Head exam: atraumatic Eye Eye exam: Present PERRL ENT ENT exam: Present other (Right posterior molar broken, tender, mild edema around tooth, gum tenderness, no trismus) Neck Neck exam: Present full ROM and trachea midline; Absent tenderness Respiratory Respiratory exam: Present normal lung sounds bilaterally Cardiovascular Cardiovascular exam: Present regular rate Neurological Exam Neurological exam: Present alert and oriented X3 Skin Skin exam: Present warm and dry Medical Decision Making <Hailey Mcdonald APRN - Last Filed: 03/29/25 19:10> Medical Records Screening: Per USPSTF and CDC recommendations, given the prevalence of disease in our region, it is our hospital?s policy to screen for HIV and viral Hepatitis for all patients aged 18 and over and those with ongoing risk factors. [facility] Pt receiving controlled substance: No Vital Signs: 03/29/25 16:35 03/29/25 16:38 03/29/25 17:01 Temperature 98.7 F Temperature Source Oral Pulse Rate 68 63 Pulse Rate [Left] 72 Respiratory Rate 16 Blood Pressure 170/97 H 136/82 Blood Pressure [Right Arm] 170/97 H Blood Pressure Mean [Right Arm] 121 Blood Pressure Source Blood Pressure Source [Right Arm] Automatic Cuff Blood Pressure Position Blood Pressure Position [Right Arm] Sitting 02 Sat by Pulse Oximetry 100 99 99 Oxygen Delivery Method Room Air Room Air Room Air 03/29/25 17:44 Temperature 98.0 F Temperature Source Oral Pulse Rate 73 Pulse Rate [Left] Respiratory Rate 18 Blood Pressure 142/82 H Blood Pressure [Right Arm] Blood Pressure Mean [Right Arm] Blood Pressure Source Automatic Cuff Blood Pressure Source [Right Arm] Blood Pressure Position Sitting Blood Pressure Position [Right Arm] 02 Sat by Pulse Oximetry Oxygen Delivery Method Room Air Orders (Tests/Meds): ED MEDICATIONS Discontinued Medications Generic Name Dose Route Start Last Admin Trade Name Freq PRN Reason Stop Dose Admin Amoxicillin/Clavulanate Potassium 1 each 03/29/25 16:49 03/29/25 17:18 Amoxicillin/Clavulanate Potassium 875/125mg Tablet PO 03/29/25 16:50 1 each ONCE ONE Administration Benzocaine/Butamben/Tetracaine HCl 1 gm 03/29/25 16:50 03/29/25 17:18 Tetracaine/Benzocaine/Butamben 56 Gm [place] TP 03/29/25 16:51 1 gm ONCE ONE Administration Lidocaine HCl 15 ml 03/29/25 16:49 03/29/25 17:19 Lidocaine 2% Viscous Rocio 15ml Udc PO 03/29/25 16:50 15 ml ONCE ONE Administration Oxycodone HCl 5 mg 03/29/25 16:49 03/29/25 17:18 Oxycodone 5mg Immediate Release Tablet PO 03/29/25 16:50 5 mg ONCE ONE Administration Medical Decision Narrative: In summary, patient is a 49-year-old female PMHx chronic poor dental hygiene who presents to the ED with complaints of a right lower molar pain x 2 days. Patient states that over the course of today her pain has worsened. She states she has lost her insurance so she is unable to see a dentist at this time. Patient states she has not been on any recent antibiotics and has not had treatment for this tooth. 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 She states she is not on any current daily medications. Upon initial evaluation she is alert, oriented and cooperative. She is hemodynamically stable. Her physical exam is remarkable for a broken right lower molar, tenderness around the area, minimal swelling around the tooth itself. Denies fever, chills, body aches, headache, neck pain, neck stiffness, chest pain, shortness of breath. Discussed with patient that we will start her on the antibiotic and administer pain medication in the ED. I offered a dental block to which patient declines. Upon reassessment, patient states her condition has improved. We discussed the necessity of dental follow-up, discussed antibiotic use. We discussed using NSAIDs at home for pain relief. We discussed return precautions to the ED and patient verbalized understanding. <Danna Ventura, DO - Last Filed: 03/31/25 04:16> Vital Signs: 03/29/25 16:35 03/29/25 16:38 03/29/25 17:01 Temperature 98.7 F Temperature Source Oral Pulse Rate 68 63 Pulse Rate [Left] 72 Respiratory Rate 16 Blood Pressure 170/97 H 136/82 Blood Pressure [Right Arm] 170/97 H Blood Pressure Mean [Right Arm] 121 Blood Pressure Source Blood Pressure Source [Right Arm] Automatic Cuff Blood Pressure Position Blood Pressure Position [Right Arm] Sitting 02 Sat by Pulse Oximetry 100 99 99 Oxygen Delivery Method Room Air Room Air Room Air 03/29/25 17:44 Temperature 98.0 F Temperature Source Oral Pulse Rate 73 Pulse Rate [Left] Respiratory Rate 18 Blood Pressure 142/82 H Blood Pressure [Right Arm] Blood Pressure Mean [Right Arm] Blood Pressure Source Automatic Cuff Blood Pressure Source [Right Arm] Blood Pressure Position Sitting Blood Pressure Position [Right Arm] 02 Sat by Pulse Oximetry Oxygen Delivery Method Room Air Orders (Tests/Meds): ED MEDICATIONS Discontinued Medications Generic Name Dose Route Start Last Admin Trade Name Tho PRN Reason Stop Dose Admin Amoxicillin/Clavulanate Potassium 1 each 03/29/25 16:49 03/29/25 17:18 Amoxicillin/Clavulanate Potassium 875/125mg Tablet PO 03/29/25 16:50 1 each ONCE ONE Administration Benzocaine/Butamben/Tetracaine HCl 1 gm 03/29/25 16:50 03/29/25 17:18 Tetracaine/Benzocaine/Butamben 56 Gm [place] TP 03/29/25 16:51 1 gm ONCE ONE Administration Lidocaine HCl 15 ml 03/29/25 16:49 03/29/25 17:19 Lidocaine 2% Viscous Rocio 15ml Udc PO 03/29/25 16:50 15 ml ONCE ONE Administration Oxycodone HCl 5 mg 03/29/25 16:49 03/29/25 17:18 Oxycodone 5mg Immediate Release Tablet PO 03/29/25 16:50 5 mg ONCE ONE Administration Medical Decision Narrative: In summary, patient is a 49-year-old female PMHx chronic poor dental hygiene who presents to the ED with complaints of a right lower molar pain x 2 days. Patient states that over the course of today her pain has worsened. She states she has lost her insurance so she is unable to see a dentist at this time. Patient states she has not been on any recent antibiotics and has not had treatment for this tooth. 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 She states she is not on any current daily medications. Upon initial evaluation she is alert, oriented and cooperative. She is hemodynamically stable. Her physical exam is remarkable for a broken right lower molar, tenderness around the area, minimal swelling around the tooth itself. Denies fever, chills, body aches, headache, neck pain, neck stiffness, chest pain, shortness of breath. Differential includes but not limited to: Dental pain, dental abscess, facial abscess, poor dentition, amongst others Discussed with patient that we will start her on the antibiotic and administer pain medication in the ED. I offered a dental block to which patient declines. Upon reassessment, patient states her condition has improved. We discussed the necessity of dental follow-up, discussed antibiotic use. We discussed using NSAIDs at home for pain relief. We discussed return precautions to the ED and patient verbalized understanding. Critical Care <Hailey Mcdonald APRN - Last Filed: 03/29/25 19:10> Critical Care Time Critical Care Time: No
[2025-03-29 17:01] VITALS: BP 136/82; PULSE 63; O2SAT 99
[2025-03-29] MEDS: AMOXICILLIN/CLAVULANATE POTASSIUM 875/125MG TABLET 1 EACH PO (17:18)
[2025-03-29] MEDS: TETRACAINE/BENZOCAINE/BUTAMBEN 56 GM SPRAY TP (17:18)
[2025-03-29] MEDS: OXYCODONE 5MG IMMEDIATE RELEASE TABLET 5 MG PO (17:18)
[2025-03-29] MEDS: LIDOCAINE 2% VISCOUS SOL 15ML UDC 15 ML PO (17:19)
[2025-03-29 17:44] VITALS: BP 142/82; PULSE 73; RESP 18; TEMP 36.7; O2SAT 99
== END 2025-03-29 17:46 | disposition home or self-care (01) ==
PROVIDERS: Emergency Provider Student in an Organized Health Care Education/Training Program
DX: K08.89 Other specified disorders of teeth and supporting structures (principal)
CPT/HCPCS: 99283; 99284